=== PATIENT | female | born 1985 | race Caucasian/White ===

== ENCOUNTER 2020-05-10 19:14 | Emergency (ER) | payer SELFPAY ==
--- NOTE | 2020-05-10 20:18 | RAD REPORT ---
EXAM DESCRIPTION: RAD - Ankle Left 3 View - 05/10/2020 8:09 pm CLINICAL HISTORY: PAIN COMPARISON: No comparisons FINDINGS: Bimalleolar fracture is seen with moderate soft tissue swelling. No dislocation is evident .
--- NOTE | 2020-05-10 22:39 | EDPHYS ---
Physician Documentation [facility] Name: Sherri Drake Age: 34 yrs Sex: Female : 1985 Arrival Date: 05/10/2020 Time: 19:17 Bed 20 Private MD: ED Physician Talib Gonzalez HPI: 05/10 22:31 This 34 yrs old Female presents to ER via Wheelchair with complaints of Fall pm1 Injury, Ankle Injury. 22:31 Details of fall: The patient fell from an upright position, while walking, and struck a pm1 concrete surface. Onset: The symptoms/episode began/occurred today. Associated injuries: The patient sustained left ankle. Severity of symptoms: in the emergency department the symptoms are unchanged. The patient has not experienced similar symptoms in the past. Patient slipped on the ice and injured her left ankle. No headache, head injury, neck pain, LOC. Historical: - Allergies: 19:27 egg; em - PMHx: 19:27 Anxiety; TIA; em - PSHx: 19:27 None; em - Immunization history:: Adult Immunizations up to date. - Social history:: Smoking status: Reported history of juuling and/or vaping. ROS: 22:31 Constitutional: Negative for fever, chills, and weight loss. pm1 22:31 Cardiovascular: Negative for chest pain, palpitations, and edema, Respiratory: Negative for shortness of breath, cough, wheezing, and pleuritic chest pain, Abdomen/GI: Negative for abdominal pain, nausea, vomiting, diarrhea, and constipation, Back: Negative for injury and pain. 22:31 Skin: Negative for injury, rash, and discoloration, Neuro: Negative for headache, weakness, numbness, tingling, and seizure. 22:31 MS/extremity: Positive for pain, swelling, tenderness, of the left ankle. Exam: 22:31 Constitutional: This is a well developed, well nourished patient who is awake, alert, pm1 and in no acute distress. Head/Face: Normocephalic, atraumatic. Neck: Trachea midline, no thyromegaly or masses palpated, and no cervical lymphadenopathy. Supple, full range of motion without nuchal rigidity, or vertebral point tenderness. No Meningismus. Chest/axilla: Normal chest wall appearance and motion. Nontender with no deformity. No lesions are appreciated. 22:31 Skin: Warm, dry with normal turgor. Normal color with no rashes, no lesions, and no evidence of cellulitis. 22:31 Cardiovascular: Exam negative for acute changes, Rate: bradycardic, Rhythm: regular, Pulses: no pulse deficits are appreciated. 22:31 Respiratory: Exam negative for acute changes, respiratory distress, shortness of breath. 22:31 Back: Exam negative for acute changes, pain at rest, painful ROM. 22:31 Musculoskeletal/extremity: Extremities: grossly normal except: noted in the left ankle: swelling, tenderness, Circulation is intact in all extremities. the left foot Sensation intact. 22:31 Neuro: Exam negative for acute changes, Orientation: is normal, Mentation: is normal, Motor: is normal, moves all fours, Sensation: is normal, no obvious gross deficits. Vital Signs: 19:25 Pulse 79; Resp 18; Temp 98.1; Pulse Ox 99% on R/A; Weight 90.72 kg; Height 5 ft. 4 in. em (162.56 cm); Pain 5/10; 19:27 BP 114 / 74; em 22:50 Pain 6/10; sf 19:25 Body Mass Index 34.33 (90.72 kg, 162.56 cm) em MDM: 22:27 Patient medically screened. pm1 22:37 Data reviewed: vital signs. Data interpreted: Pulse oximetry: on room air is 99 %. pm1 Interpretation: normal. Counseling: I had a detailed discussion with the patient and/or guardian regarding: the historical points, exam findings, and any diagnostic results supporting the discharge/admit diagnosis, radiology results, the need for outpatient follow up, for definitive care, a orthopedic surgeon, to return to the emergency department if symptoms worsen or persist or if there are any questions or concerns that arise at home. 05/10 19:30 Order name: Ankle Left 3 View XRAY; Complete Time: 22:27 em 05/10 22:31 Order name: Ankle Splint: Orthoglass: Stirrup; Complete Time: 23:11 pm1 05/10 22:31 Order name: Ankle Splint: Orthoglass: Posterior; Complete Time: 23:11 pm1 05/10 22:31 Order name: Crutches; Complete Time: 23:36 pm1 05/10 22:31 Order name: Ice pack; Complete Time: 22:46 pm1 Administered Medications: 22:46 Drug: [place] 10 mg-325 mg 1 tabs Route: PO; sf 23:14 Follow up: Response: No adverse reaction sf 22:46 Drug: Ibuprofen 600 mg Route: PO; sf 23:14 Follow up: Response: No adverse reaction sf Disposition: 05/11 01:57 Co-signature as Attending Physician, Talib Gonzalez MD I agree with the assessment and kdr plan of care. Disposition: 05/10/20 22:38 Discharged to Home. Impression: Bimalleolar fracture of lower leg - left. - Condition is Stable. - Discharge Instructions: Nondisplaced Bimalleolar Ankle Fracture Treated With Immobilization, Crutch Use. - Prescriptions for Tylenol- Codeine #3 300-30 mg Oral Tablet - take 2 tablets by ORAL route every 6 hours As needed; 20 tablet. - Medication Reconciliation Form, Thank You Letter, Antibiotic Education, Prescription Opioid Use form. - Follow up: Emergency Department; When: As needed; Reason: Worsening of condition. Follow up: Private Physician; When: 2 - 3 days; Reason: Recheck today's complaints, Continuance of care, Re-evaluation by your physician. - Problem is new. - Symptoms have improved. Signatures: Dispatcher [employer] EDTalib Mckeon MD MD [facility] David Torres RN RN em Hosea Hawley, [place] NEUROPSYCHOLOGY DIRECTOR pm1 Feroz Dinh RN RN sf Corrections: (The following items were deleted from the chart) 05/10 23:37 22:38 05/10/2020 22:38 Discharged to Home. Impression: Bimalleolar fracture of lower sf leg - left. Condition is Stable. Forms are Medication Reconciliation Form, Thank You Letter, Antibiotic Education, Prescription Opioid Use. Follow up: Emergency Department; When: As needed; Reason: Worsening of condition. Follow up: Private Physician; When: 2 - 3 days; Reason: Recheck today's complaints, Continuance of care, Re-evaluation by your physician. Problem is new. Symptoms have improved. pm1
--- NOTE | 2020-05-10 22:39 | ER ---
Nurse's Notes [facility] Name: Sherri Drake Age: 34 yrs Sex: Female : 1985 Arrival Date: 05/10/2020 Time: 19:17 Bed 20 Private MD: Diagnosis: Bimalleolar fracture of lower leg-left Presentation: 05/10 19:25 Chief complaint: Patient states: slipped on ice about 30 min. ago, reports pain on the em left ankle, denies any other injury. Coronavirus screen: Client denies travel out of the [place] in the last 14 days. Ebola Screen: Patient negative for fever greater than or equal to 101.5 degrees Fahrenheit, and additional compatible Ebola Virus Disease symptoms Patient denies exposure to infectious person. Patient denies travel to an Ebola-affected area in the 21 days before illness onset. No symptoms or risks identified at this time. Initial Sepsis Screen: Does the patient meet any 2 criteria? No. Patient's initial sepsis screen is negative. Does the patient have a suspected source of infection? No. Patient's initial sepsis screen is negative. Risk Assessment: Do you want to hurt yourself or someone else? Patient reports no desire to harm self or others. Onset of symptoms was May 10, 2020. 19:25 Method Of Arrival: Wheelchair em 19:25 Acuity: LONI 4 em Historical: - Allergies: 19:27 egg; em - PMHx: 19:27 Anxiety; TIA; em - PSHx: 19:27 None; em - Immunization history:: Adult Immunizations up to date. - Social history:: Smoking status: Reported history of juuling and/or vaping. Screenin:49 Abuse screen: Denies threats or abuse. Denies injuries from another. Nutritional sf screening: No deficits noted. Tuberculosis screening: No symptoms or risk factors identified. Never had TB. Possible symptoms: None Risk factors: None. Fall Risk None identified. Fall in past 12 months (25 points). No secondary diagnosis (0 pts). No IV (0 pts). Ambulatory Aid- Crutches/Cane/Walker (15 pts). Gait- Impaired (20 pts.). Mental Status- Oriented to own ability (0 pts). Total Jarquin Fall Scale indicates Low Risk Score (25-44 pts). Fall prevention measures have been instituted. Side Rails Up X 2 Placed close to Nursing Station. Assessment: 22:46 General: Appears uncomfortable, Behavior is calm, cooperative. Pain: Complains of pain sf in left medial ankle and anterior aspect of left ankle Pain currently is 6 out of 10 on a pain scale. Neuro: Level of Consciousness is awake, alert, obeys commands, Oriented to person, place, time, situation, Appropriate for age. Cardiovascular: Patient's skin is warm and dry. Respiratory: Airway is patent Respiratory effort is even, unlabored, Respiratory pattern is regular, symmetrical. Musculoskeletal: Range of motion: limited in left ankle Swelling present in left ankle Tenderness present in left lateral ankle, left medial ankle and anterior aspect of left ankle Reports pain in left lateral ankle, left medial ankle and anterior aspect of left ankle. Vital Signs: 19:25 Pulse 79; Resp 18; Temp 98.1; Pulse Ox 99% on R/A; Weight 90.72 kg; Height 5 ft. 4 in. em (162.56 cm); Pain 5/10; 19:27 BP 114 / 74; em 22:50 Pain 6/10; sf 19:25 Body Mass Index 34.33 (90.72 kg, 162.56 cm) em ED Course: 19:17 Patient arrived in ED. mr 19:26 Triage completed. em 19:27 Arm band placed on. em 20:05 Ankle Left 3 View XRAY In Process Unspecified. EDMS 22:27 Hosea Hawley NP is PHCP. pm1 22:27 Talib Gonzalez MD is Attending Physician. pm1 22:28 Feroz Dinh, ANA is Primary Nurse. sf 22:49 Patient has correct armband on for positive identification. Bed in low position. Call sf light in reach. Side rails up X2. Door closed. Noise minimized. Verbal reassurance given. 22:49 No provider procedures requiring assistance completed. Patient did not have IV access sf during this emergency room visit. 23:11 Orthoglass splint: Posterior short lleg splint applied on left leg. stirrup splint sf applied on left leg. Administered Medications: 22:46 Drug: [place] 10 mg-325 mg 1 tabs Route: PO; sf 23:14 Follow up: Response: No adverse reaction sf 22:46 Drug: Ibuprofen 600 mg Route: PO; sf 23:14 Follow up: Response: No adverse reaction sf Outcome: 22:38 Discharge ordered by . pm1 23:36 Discharged to home via wheelchair. sf 23:36 Condition: stable 23:36 Discharge instructions given to patient, Instructed on discharge instructions, follow up and referral plans. medication usage, Demonstrated understanding of instructions, follow-up care, medications, crutch walking, Prescriptions given X 1. 23:37 Patient left the ED. sf Signatures: Dispatcher [employer] Carlita Ortiz Edgar, RN RN Hosea Pierre, [place] TEACHER EMOTIONALLY IMPAIRED pm1 Feroz Dinh RN RN sf
[2020-05-10] MEDS ORDERED: IBUPROFEN 200 MG TAB PO ONE (22:58)
[2020-05-10] MEDS ORDERED: IBUPROFEN 400 MG TAB ONE (22:58)
[2020-05-10] MEDS ORDERED: HYDROCODONE/APAP 10/325 TAB ONE (22:58)
[2020-05-10 23:41] VITALS: TEMP 98.1; O2SAT 99
[2020-05-10 23:42] VITALS: BP 114/74
== END 2020-05-10 23:37 | disposition home or self-care (01) ==
LOC: ER 19:14
PROC: 2W3RX1Z Immobilization of Left Lower Leg using Splint (ICD-10-PCS; principal; 2020-05-10)
DX: S82.842A Displaced bimalleolar fracture of left lower leg, initial encounter for closed fracture (principal); W00.0XXA Fall on same level due to ice and snow, initial encounter; Y93.01 Activity, walking, marching and hiking; Y92.9 Unspecified place or not applicable; Z91.012 Allergy to eggs
CPT/HCPCS: 99284

== ENCOUNTER 2021-03-15 15:12 | Emergency (ER) | payer SELFPAY ==
--- NOTE | 2021-03-15 16:19 | RAD REPORT ---
EXAM DESCRIPTION: RAD - Chest Single View - 03/15/2021 4:14 pm CLINICAL HISTORY: chest pain, fatigue COMPARISON: <Comparisons> FINDINGS: Lines: None. Lungs: No evidence of edema or pneumonia. Pleural: No significant pleural effusions or pneumothorax. Cardiac: The heart size is within normal limits. Bones: No acute fractures. Other: IMPRESSION: No acute cardiopulmonary disease.
[2021-03-15 16:31] LABS: Absolute Lymphocytes (CBC) 2.5 K/uL (0.7-4.9); Basophils % 1.2 % (0-1.3); Hematocrit 38.9 % (36.0-45.0); Lymphocytes % 31.2 % (15.3-44.8); MPV 8.7 fL (7.6-11.3); RBC Red Blood Cell Count 4.23 M/uL (3.86-4.86)
[2021-03-15 16:38] LABS: Protime INR 0.96
[2021-03-15 16:53] LABS: Urine Blood Negative (Negative); Urine Glucose Negative (Negative); Urine Protein Negative (Negative); Urine Specific Gravity >=1.030 (1.005-1.030); Urine pH 5.5 (5.0-7.0)
--- NOTE | 2021-03-15 17:48 | RAD REPORT ---
EXAM DESCRIPTION: US - Extrem Venous W Compress Sonu - 03/15/2021 5:31 pm CLINICAL HISTORY: Leg pain COMPARISON: None. TECHNIQUE: Real-time sonographic evaluation of the bilateral lower extremity deep venous systems was performed. FINDINGS: Normal compressibility, flow augmentation, phasic flow and spontaneous flow is identified in both the left and right lower extremity deep venous systems. No intraluminal filling defects seen. IMPRESSION: No DVT in either lower extremity.
[2021-03-15] MEDS ORDERED: ACETAMINOPHEN 325 MG TABLET ONE (20:12)
[2021-03-15 21:25] LABS: ALT/SGPT 22 U/L (12-78); AST/SGOT 15 U/L (15-37); Albumin 3.7 g/dL (3.4-5.0); Alkaline Phosphatase 100 U/L (45-117); BUN Blood Urea Nitrogen 8 mg/dL (7-18); Bicarbonate 25 mmol/L (21-32); Bilirubin Direct < 0.1 mg/dL (0-0.2); Bilirubin Total 0.2 mg/dL (0.2-1.0); Glucose Level 92 mg/dL (74-106); Magnesium 1.9 mg/dL (1.8-2.4); NT PRO-BNP 28 pg/mL (<125); Potassium 3.8 mmol/L (3.5-5.1); Protein, Total 7.6 g/dL (6.4-8.2); Sodium Level 137 mmol/L (136-145); Troponin (Emerg Dept Use Only) < 0.02 ng/mL (0.0-0.045)
--- NOTE | 2021-03-15 21:39 | ER ---
Nurse's Notes [facility] Name: Sherri Drake Age: 35 yrs Sex: Female : 1985 Arrival Date: 03/15/2021 Time: 15:14 Bed 20 Private MD: Diagnosis: Other malaise and fatigue Presentation: 03/15 15:36 Chief complaint: Patient states: for the last few months, she has been getting ap3 excessively fatigued. Patient also reports new onset generalized bruising and headache. Coronavirus screen: At this time, the client does not indicate any symptoms associated with coronavirus-19. Ebola Screen: No symptoms or risks identified at this time. Initial Sepsis Screen: Does the patient meet any 2 criteria? No. Patient's initial sepsis screen is negative. Does the patient have a suspected source of infection? No. Patient's initial sepsis screen is negative. Risk Assessment: Do you want to hurt yourself or someone else? Patient reports no desire to harm self or others. Onset of symptoms was October 2020. 15:36 Method Of Arrival: Ambulatory ap3 15:36 Acuity: LONI 3 ap3 Triage Assessment: 15:41 Headache History: The patient has had previous headaches and this one is similar to ap3 previous episodes, and this one is less severe than previous episodes. General: Appears in no apparent distress. Behavior is cooperative, appropriate for age. Pain: Complains of pain in right and left upper leg Pain currently is 0 out of 10 on a pain scale. at worst was 4 out of 10 on a pain scale. Pain began gradually, over the last few months Also complains of no other associated symptoms. Neuro: Level of Consciousness is awake, alert, obeys commands, Oriented to person, place, time, situation, Appropriate for age Gait is steady, Speech is normal. Cardiovascular: Patient's skin is warm and dry. Respiratory: Airway is patent Respiratory effort is even, unlabored, Respiratory pattern is regular, symmetrical. 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 - Social history:: Smoking status: Patient denies any tobacco usage or history of. Screenin:43 Abuse screen: Denies threats or abuse. Nutritional screening: No deficits noted. ap3 Tuberculosis screening: No symptoms or risk factors identified. Fall Risk None identified. Assessment: 16:04 General: Appears in no apparent distress. Behavior is calm, cooperative. Pain: patterson Complains of pain in face and scalp Pain began gradually, headaches [id number]. Derm: Reports generalized bruising. Musculoskeletal: Reports generalized weakness. 21:22 Reassessment: No changes from previously documented assessment. Patient and/or family kd3 updated on plan of care and expected duration. Pain level reassessed. Patient is alert, oriented x 3, equal unlabored respirations, skin warm/dry/pink. Vital Signs: 15:36 BP 128 / 90; Pulse 86; Resp 20; Temp 98.8(TE); Pulse Ox 100% ; Weight 81.65 kg; Height ap3 5 ft. 4 in. (162.56 cm); 16:06 BP 127 / 95; Pulse 80; Resp 18; Pulse Ox 100% on R/A; patterson 16:57 BP 124 / 90; Pulse 69; Resp 18; Pulse Ox 99% on R/A; patterson 17:40 BP 131 / 82; Pulse 95; Resp 18; Pulse Ox 99% ; patterson 18:22 BP 134 / 89; Pulse 81; Resp 18; Pulse Ox 99% on R/A; patterson 21:23 BP 128 / 88; Pulse 82; Resp 18; Pulse Ox 100% on R/A; kd3 15:36 Body Mass Index 30.90 (81.65 kg, 162.56 cm) ap3 ED Course: 15:14 Patient arrived in ED. mr 15:39 Triage completed. ap3 15:44 Arm band placed on left wrist. ap3 15:47 Twyla-StageAdelina messer is Primary Nurse. patterson 15:53 Farshad Corcoran PA is PHCP. jmm 15:53 Lon Hou MD is Attending Physician. jmm 16:04 Patient has correct armband on for positive identification. Bed in low position. patterson 16:04 No provider procedures requiring assistance completed. patterson 16:14 XRAY Chest (1 view) In Process Unspecified. EDMS 16:24 Basic Metabolic Panel Sent. jg9 16:24 CBC with Diff Sent. jg9 16:24 LFT's Sent. jg9 16:24 Magnesium Sent. jg9 16:24 NT PRO-BNP Sent. jg9 16:24 PT-INR Sent. jg9 16:25 Troponin (emerg Dept Use Only) Sent. jg9 16:25 [place] Screen Profile Sent. jg9 17:31 US Extremity Venous W Compression Sonu In Process Unspecified. EDMS 21:58 IV discontinued. kd3 Administered Medications: 20:17 Drug: Tylenol 650 mg Route: PO; kd3 Outcome: 21:39 Discharge ordered by MD. [facility] 21:57 Discharged to home ambulatory. kd3 21:57 Condition: good 21:57 Discharge instructions given to patient, Instructed on discharge instructions, follow up and referral plans. Demonstrated understanding of instructions, follow-up care. 21:58 Patient left the ED. kd3 Signatures: Dispatcher [employer] EDMS Farshad Corcoran PA PA [facility] Carlita Funes mr Sahara Eaton RN RN ap3 Marguerite Zhou RN RN kd3 Lynsey Spring jg9 HenrryStageAdelina messer Corrections: (The following items were deleted from the chart) 15:44 15:36 Acuity: LONI 4 ap3 ap3
--- NOTE | 2021-03-15 21:39 | EDPHYS ---
Physician Documentation [facility] Name: Sherri Drake Age: 35 yrs Sex: Female : 1985 Arrival Date: 03/15/2021 Time: 15:14 Bed 20 Private MD: ED Physician Lon Hou HPI: 03/15 16:04 This 35 yrs old Female presents to ER via Ambulatory with complaints of Headache, jmm Fatigue,Bruising. 16:04 Onset: The symptoms/episode began/occurred gradually, 2 month(s) ago. The patient has jmm not experienced similar symptoms in the past. 35-year-old female with history of anxiety the presents emerged department with complaints of generalized body aches, joint pain, fatigue beginning approximately 2 months ago. Patient states the pain is most intense in her thighs bilaterally. Patient denies fever or chills. Also complains of a chronic headache. Patient states having similar headaches in the past.. 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 - Social history:: Smoking status: Patient denies any tobacco usage or history of. ROS: 16:04 Constitutional: Negative for fever, chills, and weight loss, Cardiovascular: Negative jmm for chest pain, palpitations, and edema, Respiratory: Negative for shortness of breath, cough, wheezing, and pleuritic chest pain. 16:04 Constitutional: Positive for body aches, chills. 16:04 Neuro: Positive for headache. 16:04 All other systems are negative. Exam: 16:04 Constitutional: This is a well developed, well nourished patient who is awake, alert, jmm and in no acute distress. Head/Face: atraumatic. Eyes: EOMI, no conjunctival erythema appreciated ENT: Moist Mucus Membranes Neck: Trachea midline, Supple Chest/axilla: Normal chest wall appearance and motion. Cardiovascular: Regular rate and rhythm. No edema appreciated Respiratory: Normal respirations, no respiratory distress appreciated Abdomen/GI: Non distended, soft Back: Normal ROM Skin: General appearance color normal MS/ Extremity: Moves all extremities, no obvious deformities appreciated, no edema noted to the lower extremities Neuro: Awake and alert, normal gait Psych: Behavior is normal, Mood is normal, Patient is cooperative and pleasant Vital Signs: 15:36 BP 128 / 90; Pulse 86; Resp 20; Temp 98.8(TE); Pulse Ox 100% ; Weight 81.65 kg; Height ap3 5 ft. 4 in. (162.56 cm); 16:06 BP 127 / 95; Pulse 80; Resp 18; Pulse Ox 100% on R/A; patterson 16:57 BP 124 / 90; Pulse 69; Resp 18; Pulse Ox 99% on R/A; patterson 17:40 BP 131 / 82; Pulse 95; Resp 18; Pulse Ox 99% ; patterson 18:22 BP 134 / 89; Pulse 81; Resp 18; Pulse Ox 99% on R/A; patterson 21:23 BP 128 / 88; Pulse 82; Resp 18; Pulse Ox 100% on R/A; kd3 15:36 Body Mass Index 30.90 (81.65 kg, 162.56 cm) ap3 MDM: 16:04 Patient medically screened. [facility] 21:38 Data reviewed: vital signs, nurses notes. Counseling: I had a detailed discussion with [facility] the patient and/or guardian regarding: the historical points, exam findings, and any diagnostic results supporting the discharge/admit diagnosis, lab results, radiology results, the need for outpatient follow up, to return to the emergency department if symptoms worsen or persist or if there are any questions or concerns that arise at home. ED course: Patient is alert nontoxic in appearance in the ED. Patient is advised to follow-up PCP for further evaluation. Patient understood and agrees plan of care.. 03/15 16:05 Order name: Basic Metabolic Panel; Complete Time: 21:28 [facility] 03/15 16:05 Order name: CBC with Diff; Complete Time: 16:47 [facility] 03/15 16:05 Order name: LFT's; Complete Time: 21:28 [facility] 03/15 16:05 Order name: Magnesium; Complete Time: 21:28 [facility] 03/15 16:05 Order name: NT PRO-BNP; Complete Time: 21:28 [facility] 03/15 16:05 Order name: PT-INR; Complete Time: 16:47 [facility] 03/15 16:05 Order name: Troponin (emerg Dept Use Only); Complete Time: 21:28 [facility] 03/15 16:05 Order name: XRAY Chest (1 view); Complete Time: 16:23 [facility] 03/15 16:05 Order name: EKG; Complete Time: 16:06 [facility] 03/15 16:05 Order name: Cardiac monitoring; Complete Time: 16:25 [facility] 03/15 16:05 Order name: [place] Screen Profile; Complete Time: 17:27 [facility] 03/15 16:05 Order name: US Extremity Venous W Compression Sonu; Complete Time: 18:00 [facility] 03/15 16:53 Order name: Urine Dipstick-Ancillary; Complete Time: 16:58 [facility] 03/15 16:05 Order name: EKG - Nurse/Tech; Complete Time: 17:31 [facility] 03/15 16:05 Order name: IV Saline Lock; Complete Time: 16:24 [facility] 03/15 16:05 Order name: Labs collected and sent; Complete Time: 16:24 [facility] 03/15 16:05 Order name: O2 Sat Monitoring; Complete Time: 16:24 [facility] 03/15 16:06 Order name: Urine Dipstick-Ancillary (obtain specimen); Complete Time: 16:54 [facility] 03/15 16:06 Order name: Urine Test (obtain specimen); Complete Time: 16:54 [facility] 03/15 16:38 Order name: Labs - recollect needed: recollect light green tube; Complete Time: 17:03 03/15 17:18 Order name: Labs - recollect needed: recollect light green top again; Complete Time: 17:31 Administered Medications: 20:17 Drug: Tylenol 650 mg Route: PO; kd3 Disposition Summary: 03/15/21 21:39 Discharge Ordered Location: Home jm Condition: Stable jm Diagnosis - Other malaise and fatigue jm Followup: jmm - With: Private Physician - When: 2 - 3 days - Reason: Recheck today's complaints, Continuance of care, Re-evaluation by your physician Discharge Instructions: - Discharge Summary Sheet jmm - Fatigue jmm Forms: - Medication Reconciliation Form jm - Thank You Letter jmm - Antibiotic Education jmm - Prescription Opioid Use [facility] Signatures: Dispatcher [employer] EDMS Dirrim, Farshad Obrien PA PA jmm Prokisch, Amanda, RN RN ap3 Marguerite Zhou, RN RN kd3
[2021-03-15 22:29] VITALS: TEMP 98.8
[2021-03-15 22:35] VITALS: BP 128/88; O2SAT 100
== END 2021-03-15 21:58 | disposition home or self-care (01) ==
LOC: ER 15:12
DX: R53.81 Other malaise (principal); Z91.012 Allergy to eggs
CPT/HCPCS: 36415; 71045; 80048; 80076; 81003; 83735; 83880; 84484; 85025; 85610; 86308; 93005; 93970; 99284

== ENCOUNTER 2024-07-21 14:38 | Emergency (ER) | payer OTHER, SELFPAY ==
[2024-07-21] MEDS ORDERED: ASPIRIN 81 MG CHEWABLE TABLET ONE (14:43)
--- OUTSIDE RECORDS SUMMARY | 2024-07-21 14:43 | XMS REPORT | Continuity of Care Document ---
Author Name Unknown Address [address] [facility] [address] [place] [address] [facility] [place] Address [address] 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 Name Role Phone Nando Potts Primary Care Physician Campaigns, Generic Provider Attending Clinician Unavailable Ching Washington Attending Clinician [phone] ALIVIA MEDELLIN Attending Clinician Unavailable Alivia Medellin NP Attending Clinician [phone] GUILLERMINA RODRIGUEZ Attending Clinician Unavailable Guillermina Pickering Attending Clinician [phone] Ching CUNHA Attending Clinician Unavailable ALIVIA MEDELLIN Admitting Clinician Unavailable Ching CUNHA Admitting Clinician Unavailable Payers Payer Name Policy Type Policy Number Effective Date Expirati on Date Source Allergies, Adverse Reactions, Alerts Allergy Name Allergy Type Status Severity Reaction(s) Onset Date Inactive Date Treating Clinician Comments Source egg DA Active [place] 08-22 00:00: 00 [facility] EGG DRUG INGREDI Active N/V 04-30 00:00: 00 [facility] Egg Propensi ty to adverse reaction s Active Nausea and/or Vomiting 04-30 00:00: 00 [facility] Social History Social Habit Start Date Stop Date Quantity Comments Source [facility] Sex assigned at 1985 00:00:00 1985 00:00:00 [facility] Smoking Status Start Date Stop Date Source Tobacco smoking consumption unknown [facility] Medications Ordered Medication Name Filled Medication Name Start Date Stop Date Current Medication? Ordering Clinician Indication Dosage Frequency Signature (SIG) Comments Components Source ibuprofen (IBU) tablet 800 mg 05-27 23:45: 00 05-27 23:46 :00 No [id number] 800mg 800 mg, Oral, ONCE, 1 dose, On Sun05/28/23 at 1745, MARY JO [facility] ibuprofen 600 mg tablet 05-27 00:00: 00 Yes [id number] 600mg Take 1 tablet by mouth every 6 (six) hours as needed for Pain (scale 4-6). [facility] predniSONE 20 mg tablet 05-27 00:00: 00 06-02 05:59 :00 No [id number] 20mg Take 1 tablet by mouth every morning for 5 days. [facility] ketorolac (TORADOL) injection 30 mg 05-11 15:15: 00 05-11 14:29 :00 No 30mg 30 mg, Intramuscu lar, ONCE, 1 dose, On Sun05/11/23 at 0915, Routine [facility] benzonatate 100 mg capsule 05-11 00:00: 00 Yes [id number] 100mg Take 1 capsule by mouth 3 (three) times daily as needed for Cough. [facility] ibuprofen 600 mg tablet 05-17 00:00: 00 Yes [id number] 600mg Take 1 tablet by mouth every 6 (six) hours as needed for Pain (scale 4-6). [facility] metroNIDAZO LE (FLAGYL) 500 mg tablet 04-30 00:00: 00 Yes 500mg Take 1 Tab by mouth 2 (two) times daily. [facility] traMADOL (ULTRAM) 50 mg tablet 04-30 00:00: 00 Yes 100mg Take 2 Tabs by mouth every 6 (six) hours as needed for Pain. [facility] Vital Signs Vital Name Observation Time Observation Value Comments Beau alexandre Systolic blood pressure 2023-07-31 23:00:00 136 mm[Hg] [facility] Diastolic blood pressure 2023-07-31 23:00:00 94 mm[Hg] [facility] Heart rate 2023-07-31 23:00:00 84 /min [facility] Respiratory rate 2023-07-31 23:00:00 19 /min [facility] Oxygen saturation in Arterial blood by Pulse oximetry 2023-07-31 23:00:00 98 /min [facility] Body temperature 2023-07-31 21:06:00 37.22 Monica [facility] Body height 2023-07-31 21:06:00 162.6 cm [facility] Body weight 2023-07-31 21:06:00 90.719 kg [facility] BMI 2023-07-31 21:06:00 34.33 kg/m2 [facility] Systolic blood pressure 2023-05-29 02:00:00 138 mm[Hg] [facility] Diastolic blood pressure 2023-05-29 02:00:00 85 mm[Hg] [facility] Heart rate 2023-05-29 02:00:00 99 /min [facility] Respiratory rate 2023-05-29 02:00:00 17 /min [facility] Oxygen saturation in Arterial blood by Pulse oximetry 2023-05-29 02:00:00 100 /min [facility] Body temperature 2023-05-28 23:34:00 36.83 Monica [facility] Body height 2023-05-28 23:34:00 162.6 cm [facility] Body weight 2023-05-28 23:34:00 90.719 kg [facility] BMI 2023-05-28 23:34:00 34.33 kg/m2 [facility] Systolic blood pressure 2023-05-11 14:02:00 156 mm[Hg] [facility] Diastolic blood pressure 2023-05-11 14:02:00 94 mm[Hg] [facility] Heart rate 2023-05-11 14:02:00 81 /min [facility] Body temperature 2023-05-11 14:02:00 36.89 Monica [facility] Respiratory rate 2023-05-11 14:02:00 18 /min [facility] Body height 2023-05-11 14:02:00 162.6 cm [facility] Body weight 2023-05-11 14:02:00 90.719 kg [facility] BMI 2023-05-11 14:02:00 34.33 kg/m2 [facility] Oxygen saturation in Arterial blood by Pulse oximetry 2023-05-11 14:02:00 100 /min [facility] BP Systolic 2024-04-09 16:34:00 151 mm[Hg] Step hen F Miky BP Diastolic 2024-04-09 16:34:00 101 mm[Hg] Gary phen F Miky Weight Measured 2024-04-09 16:34:00 210.20 pounds Jesus F Miky Height Measured 2024-04-09 16:34:00 64.00 inches Jesus F Miky Body Temperature 2024-04-09 16:34:00 98.20 degrees Jesus F Miky Heart Rate 2024-04-09 16:34:00 113.00 /min Step hen F Miky Respiratory Rate 2024-04-09 16:34:00 19.00 /min Jesus F Miky Respiratory Rate 2024-02-06 10:12:00 20.00 /min Jesus F Miky BP Systolic 2024-02-06 10:12:00 144 mm[Hg] Earl Bolaños BP Diastolic 2024-02-06 10:12:00 96 mm[Hg] Gary Bolaños Weight Measured 2024-02-06 10:12:00 166.00 pounds Jesus Bolaños Height Measured 2024-02-06 10:12:00 64.00 inches Jesus Bolaños Body Temperature 2024-02-06 10:12:00 99.20 degrees Jesus Bolaños Heart Rate 2024-02-06 10:12:00 100.00 /min Earl Bolaños Procedures Procedure Date / Time Performed Performing Clinician Source RAPID STREP SCREEN FOR GROUP A 2023-07-31 21:50:00 Ching Cunha [facility] RAPID INFLUENZA A/B 2023-07-31 21:50:00 Ching Cunha e [facility] COVID-19 (ID NOW RAPID TESTING) 2023-07-31 21:50:00 Ching Cunha [facility] US DUPLEX VENOUS ARM LEFT - BY VASCULAR LAB 2023-05-29 01:08:00 Alivia Medellin [facility] ASSIGNMENT OF BENEFITS 2023-05-29 01:01:37 Docto r Unassigned, Leal [facility] COMP. METABOLIC PANEL ([id number]) 2023-05-29 00:45:00 Alivia Medellin [facility] CBC WITH DIFF 2023-05-29 00:45:00 [facility]ivia [facility]ell[facility] PROTHROMBIN TIME / INR 2023-05-29 00:45:00 Billie Medellin ala [facility] ACTIVATED PARTIAL THRMPLAS JOO 2023-05-29 00:45:00 Alivia Medellin [facility] XR HAND <3 VW LEFT 2023-05-28 23:55:00 Alivia Medellin [facility] CONSENT/REFUSAL FOR DIAGNOSIS AND TREATMENT 2023-05-28 23:25:15 Doctor Unassigned, Leal [facility] ASSIGNMENT OF BENEFITS 2023-05-11 14:36:17 Docto r Unassigned, Leal [facility] POCT TEST 2023-05-11 14:29:00 Patricia Rodriguez [facility] RAPID INFLUENZA A/B 2023-05-11 14:06:00 Saturnino Martin [facility] COVID-19 (ID NOW RAPID TESTING) 2023-05-11 14:06:00 Saturnino Matrin [facility] CONSENT/REFUSAL FOR DIAGNOSIS AND TREATMENT 2023-05-11 13:58:41 Doctor Unassigned, Leal [facility] Encounters Start Date/Time End Date/Time Encounter Type Admission Type Attending [facility] Care Department Encounter ID Source 2024-04-09 16:19:50 2024-04-09 16:19:50 Outpatient [facility] [id number] Jesus Bolaños 2024-04-09 00:00:00 2024-04-09 00:00:00 Outpatient Visit [id number] Jesus Bolaños 2024-02-06 10:05:07 2024-02-06 10:05:07 Outpatient [facility] [id number] Jesus Bolaños 2024-02-06 00:00:00 2024-02-06 00:00:00 Outpatient Visit [id number] Jesus Bolaños 2023-08-08 00:00:00 2023-08-08 11:25:01 Letter (Out) Campaigns, Generic Provider [facility] [id number] [facility] 2023-07-31 16:10:00 2023-07-31 18:42:00 Emergency Ching Cunha [facility] [id number] [facility] 2023-05-28 17:35:00 2023-05-28 20:28:00 Emergency ALIVIA TORRES [facility] ERT [id number] [facility] 2023-05-28 17:35:00 2023-05-28 20:28:00 Emergency Alivia Medellin [facility] [id number] [facility] 2023-05-11 08:07:00 2023-05-11 09:19:00 Emergency X GUILLERMINA RODRIGUEZ [facility] ERT [id number] [facility] 2023-05-11 08:07:00 2023-05-11 09:19:00 Emergency Guillermina Rodriguez [facility] [id number] [id number] [facility] 2023-04-19 17:30:04 2023-04-19 17:30:04 Outpatient SFA SFA [id number] Jesus Ruiz Miky 2022-11-21 16:29:13 2022-11-21 16:29:13 Outpatient SFA SFA [id number] Jesus Ruiz Miky 2022-11-11 09:40:28 2022-11-11 09:40:28 Outpatient SFA SFA [id number] Jesus Bolaños 2022-11-07 16:49:54 2022-11-07 16:49:54 Outpatient SFA SFA [id number] Jesus Bolaños 2022-11-06 15:06:59 2022-11-06 15:06:59 Outpatient SFA SFA [id number] Jesus Ruiz Miky 2022-10-17 15:32:00 2022-10-17 15:32:00 Outpatient SFA SFA [id number] Jesus Ruiz Miky 2022-10-16 15:51:35 2022-10-16 15:51:35 Outpatient SFA SFA [id number] Jesus Bolaños 2020-05-17 15:38:00 2020-05-17 19:38:00 Emergency X Ching CUNHA [facility] ERT [id number] [facility] Results Test Description Test Time Test Comments Results Result Co mments Source Jesus Ruiz AustinHIV 1/2 4TH GEN, RFLX CONF [ADDED]2024-02-07 00:00:00* Test Item Value Reference Range Interpretation Comme nts HIV 1/2 4TH GEN, RFLX CONF ( test code = 3514) NON-REACTIVE Jesus Ruiz AustinCT/NG, NAAT, URINE [ADDED]2024-02-07 00:00:00* Test Item Value Reference Range Interpretation Comme nts CHLAMYDIA, NAAT, URINE (test code = 48749) NEGATIVE GONORRHEA, NAAT, URINE (test code = 72349) NEGATIVE Jesus BolañosHEPATITIS PANEL, DIAGNOSTIC [ADDED]2024-02-07 00:00:00* Test Item Value Reference Range Interpretation Comme nts HEPATITIS A TOTAL AB (test c ode = 2725) REACTIVE HEPATITIS B SURF AG (test co de = 2739) NON-REACTIVE HEP B CORE TOTAL AB (test co de = 2729) NON-REACTIVE HEPATITIS B SURFACE AB (test code = 2737) NON-REACTIVE HEPATITIS C ANTIBODY (test c ode = 4675) NON-REACTIVE INTERPRETATION HEPATITIS A: (test code = 2552) (NOTE) INTERPRETATION HEPATITIS B: (test code = 19679) (NOTE) INTERPRETATION HEPATITIS C: (test code = 90634) (NOTE) Jesus BolañsoHEPATITIS A IgM [REFLEX]2024-02-07 00:00:00* Test Item Value Reference Range Interpretation Comme nts HEPATITIS A IgM (test code = 2728) NON-REACTIVE Jesus BolañosRPR [ADDED]2024-02-07 00:00:00* Test Item Value Reference Range Interpretation Comme nts RPR RESULT (test code = 3501) NON-REACTIVE RPR TITER (test code = 3500) NOT INDIC. TITER Jesus Ruiz AustinHIV 1/2 4TH GEN, RFLX CONF [ADDED]2024-02-07 00:00:00* Test Item Value Reference Range Interpretation Comme nts HIV 1/2 4TH GEN, RFLX CONF ( test code = 3514) NON-REACTIVE Jesus Ruiz AustinCT/NG, NAAT, URINE [ADDED]2024-02-07 00:00:00* Test Item Value Reference Range Interpretation Comme nts CHLAMYDIA, NAAT, URINE (test code = 64703) NEGATIVE GONORRHEA, NAAT, URINE (test code = 13155) NEGATIVE Jesus BolañosLULAPATITIS PANEL, DIAGNOSTIC [ADDED]2024-02-07 00:00:00* Test Item Value Reference Range Interpretation Comme nts HEPATITIS A TOTAL AB (test c ode = 2725) REACTIVE HEPATITIS B SURF AG (test co de = 2739) NON-REACTIVE HEP B CORE TOTAL AB (test co de = 2729) NON-REACTIVE HEPATITIS B SURFACE AB (test code = 2737) NON-REACTIVE HEPATITIS C ANTIBODY (test c ode = 4675) NON-REACTIVE INTERPRETATION HEPATITIS A: (test code = 2552) (NOTE) INTERPRETATION HEPATITIS B: (test code = 46178) (NOTE) INTERPRETATION HEPATITIS C: (test code = 59983) (NOTE) Jesus EarlPATITIS A IgM [REFLEX]2024-02-07 00:00:00* Test Item Value Reference Range Interpretation Comme nts HEPATITIS A IgM (test code = 2728) NON-REACTIVE Jesus BolañosCOMP. METABOLIC PANEL (28584)2023-05-29 01:25:01* Test Item Value Reference Range Interpretation Comme nts NA (test code = 2078827842) 134 mmol/L 135-145 L K (test code = 4674315025) 3.9 mmol/L 3.5-5.0 CL (test code = 7871941749) 105 mmol/L 98-108 CO2 TOTAL (test code = 4698151271) 22 mmol/L 23-31 L AGAP (test code = 9616396937) 7 2-16 BUN (test code = 1750537776) 16 mg/dL 7-23 GLUCOSE (test code = 4954865581) 87 mg/dL 70-110 CREATININE (test code = 2160-0) 0.79 mg/dL 0.50-1.04 TOTAL BILI (test code = 4849584721) 0.3 mg/dL 0.1-1.1 CALCIUM (test code = 3081481818) 9.0 mg/dL 8.6-10.6 T PROTEIN (test code = 0952860711) 7.4 g/dL 6.3-8.2 ALBUMIN (test code = 1589710638) 4.2 g/dL 3.5-5.0 ALK PHOS (test code = 6087295546) 84 U/L 34-122 ALTv (test code = 1742-6) 17 U/L 5-35 AST(SGOT) (test code = 8185993022) 29 U/L 13-40 eGFR (test code = 72653-5) 98.9 mL/min/1.73m2 CKD-EPI eGFR (2020). Assuming creatinine has been stable day-to-day for at least three months, the eGFR indicates Category G1 (>= 90 mL/min/1.73 m2) Lab Interpretation (test code = 62281-0) Abnormal [facility] / [id number] 01:19:40* Test Item Value Reference Range Interpretation Comme [facility] PROTIME PATIENT (test code = 5964-2) 11.8 10.1-12.6 INR (test code = 6301-6) 1.0 Normal INR <1.1; Warfarin Therapeutic range 2.0 to 3.0 or 2.5 to 3.5, depending upon the indications. Lab Interpretation (test code = 74386-2) Normal [facility]IV[facility] PARTIAL THRMPLAS [id number] 01:19:40* Test Item Value Reference Range Interpretation Comme [facility] APTT Patient (test code = 3173-2) 32 26-36 ISAIAS (test code = ISAIAS) The [facility] patient population mean normal value for aPTT is 30 seconds. Lab Interpretation (test code = 17267-2) Normal [facility] HospitalCBC WITH [id number] 01:08:19* Test Item Value Reference Range Interpretation Comme [facility] WBC (test code = 6690-2) 8.20 4.30-11.10 RBC (test code = 789-8) 4.20 3.93-5.25 HGB (test code = 718-7) 13.0 g/dL 11.6-15.0 HCT (test code = 4544-3) 38.7 % 35.7-45.2 MCV (test code = 787-2) 92.1 fL 80.6-95.5 MCH (test code = 785-6) 31.0 pg 25.9-32.8 MCHC (test code = 786-4) 33.6 g/dL 31.6-35.1 RDW-SD (test code = 46401-9) 45.7 fL 39.0-49.9 RDW-CV (test code = 788-0) 13.6 % 12.0-15.5 PLT (test code = 777-3) 332 166-358 MPV (test code = 89153-9) 10.2 fL 9.5-12.9 NRBC/100 WBC (test code = 5580945809) 0.0 0.0-10.0 NRBC x10^3 (test code = 4527758977) See_Comment [Automated me ssage] The system which generated this result transmitted reference range: 10*3/?L. The reference range was not used to interpret this result as normal/abnormal. GRAN MAT (NEUT) % (test code = 770-8) 50.3 % IMM GRAN % (test code = 8433867660) 0.20 % LYMPH % (test code = 736-9) 35.6 % MONO % (test code = 5905-5) 10.4 % EOS % (test code = 713-8) 2.6 % BASO % (test code = 706-2) 0.9 % GRAN MAT x10^3(ANC) (test code = 8664973891) 4.13 10*3/uL 1.88-7.09 IMM GRAN x10^3 (test code = 1223744275) 0.00-0.06 LYMPH x10^3 (test code = 731-0) 2.92 10*3/uL 1.32-3.29 MONO x10^3 (test code = 742-7) 0.85 10*3/uL 0.33-0.92 EOS x10^3 (test code = 711-2) 0.21 10*3/uL 0.03-0.39 BASO x10^3 (test code = 704-7) 0.07 10*3/uL 0.01-0.07 [facility]XR [facility] <3 VW [id number] 00:44:59ORDERING PHYSICIAN: ALIVIA MEDELLIN HISTORY: 37 years old, Female, pain and swelling TECHNIQUE: XR HAND <3 VW LEFT COMPARISON: None. FINDINGS: No acute fracture, dislocation or evidence of osseousdestruction. Softtissues are within normal limits.[facility] HospitalPOCT [id number] 14:29:00 * Test Item Value Reference Range Interpretation Comme nts POCT PREG (test code = 1605) Negative On board controls acceptable with C Line (test code = 3574) Yes POCT PREG LOT # (test code = 3575) [id number] POCT PREG TEST DATE ( test code = 3576) 06/03/2024 Lab Interpretation (test cod e = 70156-6) Normal [facility] W/AUTO DIFF WITH [id number] 02:22:45* Test Item Value Reference Range Interpretation Comme nts WBC (test code = 1001) 8.0 K/UL 3.5-11.0 RBC (test code = 1002) 4.20 M/UL 3.80-5.40 HEMOGLOBIN (test code = 1003) 13.1 G/DL 11.5-15.5 HEMATOCRIT (test code = 1004) 37.5 % 34.0-45.0 MCV (test code = 1005) 89.3 fL 80.0-99.0 MCH (test code = 1006) 31.2 PG 25.0-33.0 MCHC (test code = 1007) 34.9 G/DL 31.0-36.0 RDW (test code = 1038) 12.5 % 11.5-15.0 NEUTROPHILS (test code = 1008) 55.6 % LYMPHOCYTES (test code = 1010) 32.6 % MONOCYTES (test code = 1011) 8.9 % EOSINOPHILS (test code = 1012) 1.6 % BASOPHILS (test code = 1013) 1.0 % IMMATURE GRANULOCYTES (test code = 1036) 0.3 % NUCLEATED RBCS (test code = 1065) 0.0 /100 WBC'S See_Comment [Automated message] The system which generated this result transmitted reference range: 0.0. The reference range was not used to interpret this result as normal/abnormal. PLATELET COUNT (test code = 1015) 344 K/UL 130-400 ABSOLUTE NEUTROPHILS (test code = 1066) 4.43 K/UL 1.50-7.50 ABSOLUTE LYMPHOCYTES (test code = 1067) 2.60 K/UL 1.00-4.00 ABSOLUTE MONOCYTES (test code = 1068) 0.71 K/UL 0.20-1.00 ABSOLUTE EOSINOPHILS (test code = 1040) 0.13 K/UL 0.00-0.50 ABSOLUTE BASOPHILS (test code = 1069) 0.08 K/UL 0.00-0.20 ABS IMMATURE GRANULOCYTES (test code = 1020) 0.02 K/UL 0.00-0.10 ABS NUCLEATED RBCS (test code = 55128) 0.00 K/UL 0.00-0.11 UNLESS OTHER GOODWIN INDICATED, ALL TESTING PERFORMED AT [facility] [address] [place] [address] BENEFITS REPRESENTATIVE: JUDITH HATCH M.D. CLIA NUMBER [id number] [place]. [id number] CT/NG, NAAT, [id number] 19:56:03* Test Item Value Reference Range Interpretation Comme nts GONORRHEA, NAAT (test code = 67014) NEGATIVE NEGATIVE IMPORTANT NO ARSH: SEE ANNOUNCEMENT AT [email or web address] Note: Assay methodology is nucleic acid amplification by quality auditor mediated amplification (TMA) utilizing the Aptima Combo 2 Assay. CHLAMYDIA, NAAT (test code = 78934) NEGATIVE NEGATIVE IMPORTANT NO ARSH: SEE ANNOUNCEMENT AT [email or web address] Note: Assay methodology is nucleic acid amplification by quality auditor mediated amplification (TMA) utilizing the Aptima Combo 2 Assay. PAP TEST, THINPREP, [id number] 16:22:39* Test Item Value Reference Range Interpretation Comme nts SOURCE: (test code = 8001) Cervical/Endo cervical SLIDES: (test code = 8011) 1 LMP: (test code = 8021) 05/17/2021 SPECIMEN ADEQUACY: (test code = 91992) (NOTE) Satisfactory for evaluation. Endocervical cells/transformation zone component present. INTERPRETATION: (test code = 52057) NILM/NO EPITH. ABNORMALITY;S EE BELOW ---- NEGATIVE FOR INTRAEPITHELIAL LESION OR MALIGNANCY (NILM) - BARREL COOPER: (test code = 8101) CHI Mckeon(ASCP) IAC LOCATION: (test code = 48880) (NOTE) Specimens proces sed and interpreted at [facility], [address] [place] [address], , CLIA: [id number] CPT: (test code = 8140) (NOTE) 19[address] UNLESS OTH ERWISE INDICATED, COMPUTER AIDED AND BARREL COOPER SCREENING PERFORMED. The Pap test is a screening test with an inherent, but low probability of error. Your patient should be reminded to consult you immediately if she experiences any suspicious signs or symptoms, regardless of her Pap test result. An alternate report format containing images or consolidated prior Pap history is available as applicable. UNLESS OTHERWISE INDICATED, ALL TESTING PERFORMED [facility] [address] [place] [address] BENEFITS REPRESENTATIVE: MAGALI STEELE M.D. CLIA NUMBER [id number] [facility] [place]. [id number] VAGINAL PATHOGENS DNA [id number] 12:53:52* Test Item Value Reference Range Interpretation Comme nts CHRISTI SPECIES (test code = 82210) NEGATIVE NEGATIVE G. VAGINALIS (test code = 49875) POSITIVE NEGATIVE A T. VAGINALIS (test code = 80868) NEGATIVE NEGATIVE UNLESS OTHERWISE INDICATED, ALL TESTING PERFORMED [facility] [address] [place] [address] BENEFITS REPRESENTATIVE: MAGALI STEELE M.D. CLIA NUMBER [id number] [place]. [id number] 05:29:53* Test Item Value Reference Range Interpretation Comme nts RPR RESULT (test code = 3501) NON-REACTIVE NON-REACTIVE RPR TITER (test code = 3500) NOT INDIC. TITER NOT INDIC. HIV 1/2 4TH GEN, RFLX [id number] 03:00:58* Test Item Value Reference Range Interpretation Comme nts HIV 1/2 4TH GEN, RFLX CONF ( test code = 3514) NON-REACTIVE NON-REACTIVE HEPATITIS PANEL, [id number] 03:00:58* Test Item Value Reference Range Interpretation Comme nts HEPATITIS A IgM (test code = 16286) NON-REACTIVE NON-REACTIVE HEPATITIS B CORE IgM (test code = 4644) NON-REACTIVE NON-REACTIVE HEPATITIS B SURF AG (test code = 2739) NON-REACTIVE NON-REACTIVE HEPATITIS C ANTIBODY (test code = 4675) NON-REACTIVE NON-REACTIVE INTERPRETATION HEPATITIS A: (test code = 2552) (NOTE) Hepatitis A serology shows no evidence of acute hepatitis A. INTERPRETATION HEPATITIS B: (test code = 28674) (NOTE) Hepatitis B serology shows no evidence of acute hepatitis B andno indication of exposure to hepatitis B virus in the previous chucky eight months. INTERPRETATION HEPATITIS C: (test code = 24371) (NOTE) Hepatitis C serology shows no evidence of exposure to hepatitisC virus at this time. It can take up to 12 months after exposure tothe hepatitis C virus for antibodies to become detectable in the blood in certain patients. UR HCG [id number] 22:34:00* Test Item Value Reference Range Interpretation Comme nts UR HCG QUAL (test code = HCGQLU) NEGATIVE NEGATIVE BASIC METABOLIC [id number] 21:58:00* Test Item Value Reference Range Interpretation Comme nts SODIUM (test code = NA) 140 mmol/l 134.0-147.0 N POTASSIUM (test code = K) 4.3 mmol/L 3.6-5.2 N CHLORIDE (test code = CL) 104 mmol/l 98.0-107.0 N CARBON DIOXIDE (test code = CO2) 29.5 mmol/l 21.0-33.0 N ANION GAP (test code = GAP) 10.8 0-20 N GLUCOSE (test code = GLU) 99 mg/dl 70.0-110.0 N BLOOD UREA NITROGEN (test co de = BUN) 15 mg/dl 7.0-18.0 N CREATININE (test code = CREAT) 0.88 mg/dL 0.60-1.30 N GFR NON BLACK (test code = GFRNONBLACK) 79 mL/min 105-110 L GFR BLACK (test code = GFRBLACK) 95 mL/min 127-133 L CALCIUM (test code = CA) 9.5 mg/dl 8.0-10.5 N Specimen comments: .Specimen comments: Clean CatchHEPATIC FUNCTION PANEL A 2018-05-28 21:58:00* Test Item Value Reference Range Interpretation Comme nts TOTAL PROTEIN (test code = PROT) 7.6 GM/DL 6.0-8.1 N ALBUMIN (test code = ALB) 4.0 gm/dL 3.2-4.7 N BILIRUBIN TOTAL (test code = BILT) 0.1 mg/dl 0.0-1.0 N BILIRUBIN DIRECT (test code = BILD) 0.1 mg/dl 0.0-0.3 N SGOT/AST (test code = AST) 22 Units/L 15.0-37.0 N SGPT/ALT (test code = ALT) 26 Units/L 12.0-78.0 N ALKALINE PHOSPHATASE TOTAL ( test code = ALKP) 100 Units/L 50.0-136.0 N Specimen comments: .Specimen comments: Clean [id number] 21:58:00* Test Item Value Reference Range Interpretation Comme nts LIPASE (test code = LIP) 110 Units/L 65.0-230.0 N Specimen comments: .Specimen comments: Clean CatchB-TYPE NATRIURETIC PEPTIDE 2018-05-28 21:58:00* Test Item Value Reference Range Interpretation Comme nts B-TYPE NATRIURETIC PEPTIDE ( test code = BNP) <5.0 PG/ML 5-100 L Specimen comments: .Specimen comments: Clean CatchCARDIAC ENZYMES PROFILE 2018-05-28 21:58:00* Test Item Value Reference Range Interpretation Comme nts CREATINE KINASE (CK) (test code = CK) 87 Units/L 26-192 N CKMB (test code = CKMBT) 0.9 NG/ML 0.5-5.0 N DISREGARD CKMB I NDEX CALCULATION WHENEVER THE CKMBT ISREPORTED <0.5 CKMB INDEX (test code = CKMBI) 1.0 0.0-2.5 N TROPONIN-I (test code = TROPI) <0.02 NG/ML 0.00-0.06 N REFERENCE RANGE TROPONIN I HEALTHY INDIVIDUALS: <0.06 ng/mL R/O ISCHEMIA: 0.07 - 0.60 ng/mL CUT-OFF RANGE FOR AMI: 0.60 - 1.5 ng/mL Specimen comments: .Specimen comments: Karime BriceBASIC METABOLIC PANEL 2018-05-28 21:54:00* Test Item Value Reference Range Interpretation Comme nts SODIUM (test code = NA) 140 mmol/l 134.0-147.0 N POTASSIUM (test code = K) 4.3 mmol/L 3.6-5.2 N CHLORIDE (test code = CL) 104 mmol/l 98.0-107.0 N CARBON DIOXIDE (test code = CO2) 29.5 mmol/l 21.0-33.0 N ANION GAP (test code = GAP) 10.8 0-20 N GLUCOSE (test code = GLU) mg/dl 70.0-110.0 BLOOD UREA NITROGEN (test co de = BUN) mg/dl 7.0-18.0 CREATININE (test code = CREAT) mg/dL 0.60-1.30 GFR NON BLACK (test code = GFRNONBLACK) mL/min 105-110 GFR BLACK (test code = GFRBLACK) mL/min 127-133 CALCIUM (test code = CA) mg/dl 8.0-10.5 Specimen comments: .Specimen comments: Karime [employer] Solar ConcentratorHEPATIC FUNCTION PANEL A 2018-05-28 21:54:00* Test Item Value Reference Range Interpretation Comme nts TOTAL PROTEIN (test code = PROT) gm/dL 6.4-8.2 ALBUMIN (test code = ALB) gm/dl 3.2-4.7 BILIRUBIN TOTAL (test code = BILT) mg/dl 0.0-1.0 BILIRUBIN DIRECT (test code = BILD) mg/dl 0.0-0.3 SGOT/AST (test code = AST) Units/L 15.0-37.0 SGPT/ALT (test code = ALT) Units/L 12.0-78.0 ALKALINE PHOSPHATASE TOTAL ( test code = ALKP) Units/L 50.0-136.0 Specimen comments: .Specimen comments: Karime [id number] 21:54:00* Test Item Value Reference Range Interpretation Comme nts LIPASE (test code = LIP) Units/L 65.0-230.0 Specimen comments: .Specimen comments: Clean CatchB-TYPE NATRIURETIC PEPTIDE 2018-05-28 21:54:00* Test Item Value Reference Range Interpretation Comme nts B-TYPE NATRIURETIC PEPTIDE ( test code = BNP) <5.0 PG/ML 5-100 L Specimen comments: .Specimen comments: Clean CatchCARDIAC ENZYMES PROFILE 2018-05-28 21:54:00* Test Item Value Reference Range Interpretation Comme nts CREATINE KINASE (CK) (test code = CK) Units/L 26-192 CKMB (test code = CKMBT) NG/ML 0.5-5.0 CKMB INDEX (test code = CKMBI) 0.0-2.5 TROPONIN-I (test code = TROPI) NG/ML 0.00-0.06 Specimen comments: .Specimen comments: Clean CatchPROTHROMBIN [id number] 21:49:00* Test Item Value Reference Range Interpretation Comme [facility] PROTHROMBIN TIME PATIENT (test code = PTP) 10.1 SECONDS 9.9-12.8 N INTERNATIONAL NORMAL RATIO (test code = INR) 0.9 0.89-1.14 N THE INR IS TO BE USED ONLY FOR MONITORING ORAL ANTICOAGULANTTHERAPY. THE FOLLOWING ARE SUGGESTED RANGES FROM THEAMERICAN COLLEGE OF CHEST PHYSICIANS:INDICATION INR VALUEPROPHYLAXIS OF VENOUS THROMBOSIS (ORTHOPEDIC SURGERY) 2.0 - 3.0PROPHYLAXIS OF VENOUS THROMBOSIS (OTHER THAN HIGH-RISK SURGERY) 2.0 - 3.0TREATMENT OF DEEP VEIN THROMBOSIS OR PULMONARY EMBOLISM 2.0 - 3.0PREVENTION OF SYSTEMIC EMBOLISM TISSUE HEART VALVES 2.0 - 3.0 ACUTE MYOCARDIAL INFARCTION (TO PREVENT SYSTEMIC EMBOLISM) 2.0 - 3.0 ACUTE MYOCARDIAL INFARCTION (TO PREVENT RECURRENT INFARCT) 2.5 - 3.0 VALVULAR HEART DISEASE 2.0 - 3.0 ATRIAL FIBRILATION 2.0 - 3.0BILEAFLET MECHANICAL VALVE IN AORTIC POSITION 2.0 - 3.0MECHANICAL PROSTHETIC VALVES (HIGH RISK) 2.5 - 3.5PRESENCE OF LUPUS ANTICOAGULANT OR ANTIPHOSPHOLIPID ANTIBODIES 2.5 - 3.5 Specimen comments: .THROMBOPLASTIN TIME [id number] 21:49:00* Test Item Value Reference Range Interpretation Comme nts THROMBOPLASTIN TIME PARTIAL (test code = PTT) 30.00 SECONDS 25.86-36.07 [facility] Therapeutic Range - APTT of 55.8-85.4 secondscorrelates with plasma heparin concentration of 0.2-0.4 u/mL New range effective - 05/21/2016 Specimen comments: .DRUGS OF ABUSE SCREEN [id number] 21:45:00* Test Item Value Reference Range Interpretation Comme nts URN COCAINE (test code = COCAURN) NEGATIVE NEGATIVE Cocaine cut-off concentration: 300 ng/mL URN CANNABINOIDS (test code = CANNABURN) NEGATIVE NEGATIVE Cannabinoids c ut-off concentration: 50 ng/mL URN AMPHETAMINE (test code = AMPHETURN) NEGATIVE NEGATIVE Amphetamine cu t-off concentration: 1000 ng/mL URN BARBITURATE (test code = BARBITURN) NEGATIVE NEGATIVE Barbiturate cu t-off concentration: 200 ng/mL URN BENZODIAZEPINE (test code = BENZOURN) NEGATIVE NEGATIVE Benzodiaz epine cut-off concentration: 200 ng/mL URN OPIATES (test code = OPIATURN) NEGATIVE NEGATIVE Opiates cut-off concentration: 200 ng/mL URN PHENCYCLIDINE (PCP) (test code = PHENCURN) NEGATIVE NEGATIVE Phencycli dine(PCP) cut-off concentration: 25 ng/ml URN METHADONE (test code = METHAURN) NEGATIVE NEGATIVE Methadone cut-o ff concentration: 300 ng/mL Specimen comments: Clean CatchURINALYSIS [id number] 21:44:00* Test Item Value Reference Range Interpretation Comme nts UA COLOR (test code = COLU) YELLOW UA APPEARANCE (test code = APPU) CLEAR UA GLUCOSE DIPSTICK (test code = DGLUU) NORMAL mg/dl NORMAL UA BILIRUBIN DIPSTICK (test code = BILU) NEGATIVE mg/dL NEGATIVE UA KETONE DIPSTICK (test code = KETU) NEGATIVE mg/dl NEGATIVE UA SPECIFIC GRAVITY (test code = SGU) 1.010 1.000-1.030 UA BLOOD DIPSTICK (test code = ASHA) NEGATIVE Cory/micL NEGATIVE UA PH DIPSTICK (test code = MERLY) 6.0 5.0-9.0 UA PROTEIN DIPSTICK (test code = PROU) NEGATIVE mg/dl NEGATIVE UA UROBILINIOGEN DIPSTICK (test code = URO) NORMAL mg/dl NORMAL UA NITRITE DIPSTICK (test code = VAHID) NEGATIVE NEGATIVE UA LEUKOCYTE ESTERASE DIPSTICK (test code = LEUU) NEGATIVE Forest/micL NEGATIVE UA WBC (test code = WBCU) 0-2 WBC/HPF NONE UA RBC (test code = RBCU) 0-2 RBC/HPF 0-3 UA EPITHELIAL CELLS (test code = EPIU) 2-5 EPI/HPF 0-3 A UA BACTERIA (test code = BACU) FEW NONE Specimen comments: Clean CatchBASIC METABOLIC [id number] 21:43:00* Test Item Value Reference Range Interpretation Comme nts SODIUM (test code = NA) 140 mmol/l 134.0-147.0 N POTASSIUM (test code = K) 4.3 mmol/L 3.6-5.2 N CHLORIDE (test code = CL) 104 mmol/l 98.0-107.0 N CARBON DIOXIDE (test code = CO2) 29.5 mmol/l 21.0-33.0 N ANION GAP (test code = GAP) 10.8 0-20 N GLUCOSE (test code = GLU) mg/dl 70.0-110.0 BLOOD UREA NITROGEN (test co de = BUN) mg/dl 7.0-18.0 CREATININE (test code = CREAT) mg/dL 0.60-1.30 GFR NON BLACK (test code = GFRNONBLACK) mL/min 105-110 GFR BLACK (test code = GFRBLACK) mL/min 127-133 CALCIUM (test code = CA) mg/dl 8.0-10.5 Specimen comments: .Specimen comments: LocallyHEPATIC FUNCTION PANEL A 2018-05-28 21:43:00* Test Item Value Reference Range Interpretation Comme nts TOTAL PROTEIN (test code = PROT) gm/dL 6.4-8.2 ALBUMIN (test code = ALB) gm/dl 3.2-4.7 BILIRUBIN TOTAL (test code = BILT) mg/dl 0.0-1.0 BILIRUBIN DIRECT (test code = BILD) mg/dl 0.0-0.3 SGOT/AST (test code = AST) Units/L 15.0-37.0 SGPT/ALT (test code = ALT) Units/L 12.0-78.0 ALKALINE PHOSPHATASE TOTAL ( test code = ALKP) Units/L 50.0-136.0 Specimen comments: .Specimen comments: Clean [id number] 21:43:00* Test Item Value Reference Range Interpretation Comme nts LIPASE (test code = LIP) Units/L 65.0-230.0 Specimen comments: .Specimen comments: Clean CatchB-TYPE NATRIURETIC PEPTIDE 2018-05-28 21:43:00* Test Item Value Reference Range Interpretation Comme nts B-TYPE NATRIURETIC PEPTIDE ( test code = BNP) PG/ML 5-100 Specimen comments: .Specimen comments: Clean CatchCARDIAC ENZYMES PROFILE 2018-05-28 21:43:00* Test Item Value Reference Range Interpretation Comme nts CREATINE KINASE (CK) (test code = CK) Units/L 26-192 CKMB (test code = CKMBT) NG/ML 0.5-5.0 CKMB INDEX (test code = CKMBI) 0.0-2.5 TROPONIN-I (test code = TROPI) NG/ML 0.00-0.06 Specimen comments: .Specimen comments: Clean CatchCBC W/AUTO [id number] 21:42:00* Test Item Value Reference Range Interpretation Comme nts WHITE BLOOD CELL (test code = WBC) 8.6 K/mm3 4.5-11.0 N RED BLOOD CELL (test code = RBC) 4.46 M/mm3 3.80-5.20 N HEMOGLOBIN (test code = HGB) 14.6 gm/dL 12.0-16.0 N HEMATOCRIT (test code = HCT) 43.9 % 36.0-48.0 N MEAN CELL VOLUME (test code = MCV) 98.4 UM3 82.0-99.0 N MEAN CELL HGB (test code = MCH) 32.7 UUG 25.5-32.5 H MEAN CELL HGB CONCETRATION (test code = MCHC) 33.3 gm/dL 29.0-35.5 N RED CELL DISTRIBUTION WIDTH (test code = RDW) 13.0 % 11.5-15.0 N RED CELL DISTRIBUTION WIDTH SD (test code = RDW-SD) 47.1 fL 34.8-50.2 N PLATELET COUNT (test code = PLT) 284 K/mm3 150-400 N MEAN PLATELET VOLUME (test c ode = MPV) 10.1 fl 7.4-10.4 N NEUTROPHIL % (test code = NT%) 41.4 % 49.0-76.0 L IMMATURE GRANULOCYTE % (test code = IG%) 0.2 % 0.0-0.4 N LYMPHOCYTE % (test code = LY%) 38.5 % 23.0-38.0 H MONOCYTE % (test code = MO%) 9.0 % 1.0-10.0 N EOSINOPHIL % (test code = EO%) 9.4 % 1.0-5.0 H BASOPHIL % (test code = BA%) 1.5 % 0.0-1.0 H NEUTROPHIL # (test code = NT#) 3.6 K/mm3 2.4-6.3 N IMMATURE GRANULOCYTE # (test code = IG#) 0.02 x10 3/uL 0.00-0.07 N LYMPHOCYTE # (test code = LY#) 3.3 K/mm3 1.2-4.0 N MONOCYTE # (test code = MO#) 0.8 K/mm3 0.0-0.6 H EOSINOPHIL # (test code = EO#) 0.8 K/MM3 0.0-0.7 H BASOPHIL # (test code = BA#) 0.1 K/mm3 0.0-0.2 N URINALYSIS [id number] 21:36:00* Test Item Value Reference Range Interpretation Comme nts UA COLOR (test code = COLU) YELLOW UA APPEARANCE (test code = APPU) CLEAR UA GLUCOSE DIPSTICK (test code = DGLUU) NORMAL mg/dl NORMAL UA BILIRUBIN DIPSTICK (test code = BILU) NEGATIVE mg/dL NEGATIVE UA KETONE DIPSTICK (test code = KETU) NEGATIVE mg/dl NEGATIVE UA SPECIFIC GRAVITY (test code = SGU) 1.010 1.000-1.030 UA BLOOD DIPSTICK (test code = ASHA) NEGATIVE Cory/micL NEGATIVE UA PH DIPSTICK (test code = MERLY) 6.0 5.0-9.0 UA PROTEIN DIPSTICK (test code = PROU) NEGATIVE mg/dl NEGATIVE UA UROBILINIOGEN DIPSTICK (test code = URO) NORMAL mg/dl NORMAL UA NITRITE DIPSTICK (test code = VAHID) NEGATIVE NEGATIVE UA LEUKOCYTE ESTERASE DIPSTICK (test code = LEUU) NEGATIVE Forest/micL NEGATIVE UA WBC (test code = WBCU) WBC/HPF NONE UA RBC (test code = RBCU) RBC/HPF 0-3 UA EPITHELIAL CELLS (test code = EPIU) EPI/HPF 0-3 UA BACTERIA (test code = BACU) NONE Specimen comments: Clean Catch- XR CHEST 1 [id number] 20:33:00FAX: Patricia Krueger MD [phone] [place]: St: PRE Name: DUNG HDEZ [facility] : 1985 Age/S: 32/F [address] Unit #: [id number] Loc: [place], [place]: [place] [id number] Acct: [id number] Dis Date: Status: PRE ER PHONE #: [phone] Exam Date: 05/28/20182026 FAX #: [phone] Reason: SOB EXAMS: CPT CODE: [id number] XR CHEST 1 V 74515 R16 EXAM: - XR CHEST 1 V HISTORY: SOB COMPARISON: 05/07/2018 FINDINGS: The lungs are clear. No pleural effusion or pneumothorax. The cardiac silhouette is within normal limits. No acute osseous abnormalities. IMPRESSION: No acute cardiopulmonary disease. at 2032 Reported and signed by: Markos Peña M.D. CC: Patricia Krueger MD Technologist: WAYNE RIVAS Trnscrd Date/Time/By: 05/28/2018 (2032) : By: [id number] PAGE 1 Signed Report FAX: Patricia Krueger MD [phone] [place]: St: PRE ---- Name: DUNG HDEZ [facility] : 1985 Age/S: 32/F [address] Unit#: [id number] Loc: [place], [place]: [place] [id number] Acct: [id number] Dis Date: Status: PRE ER PHONE #: [phone] Exam Date: 05/28/20182026 FAX #: [phone] Reason: SOB EXAMS: CPT CODE: [id number] XR CHEST 1 V 90119 (Continued) Orig Print D/T: S: 05/28/2018 (2035) PAGE 2 Signed ReportBASIC METABOLIC [id number] 10:42:00* Test Item Value Reference Range Interpretation Comme nts SODIUM (test code = NA) 138 mmol/l 134.0-147.0 N POTASSIUM (test code = K) 4.2 mmol/L 3.6-5.2 N CHLORIDE (test code = CL) 102 mmol/l 98.0-107.0 N CARBON DIOXIDE (test code = CO2) 24.8 mmol/l 21.0-33.0 N ANION GAP (test code = GAP) 15.4 0-20 N GLUCOSE (test code = GLU) 97 mg/dl 70.0-110.0 N BLOOD UREA NITROGEN (test co de = BUN) 12 mg/dl 7.0-18.0 N CREATININE (test code = CREAT) 0.79 mg/dL 0.60-1.30 N GFR NON BLACK (test code = GFRNONBLACK) 89 mL/min 105-110 L GFR BLACK (test code = GFRBLACK) 108 mL/min 127-133 L CALCIUM (test code = CA) 9.7 mg/dl 8.0-10.5 N Specimen comments: .Specimen comments: Clean CatchHEPATIC FUNCTION PANEL A 2018-05-07 10:42:00* Test Item Value Reference Range Interpretation Comme nts TOTAL PROTEIN (test code = PROT) 7.8 GM/DL 6.0-8.1 N ALBUMIN (test code = ALB) 4.1 gm/dL 3.2-4.7 N BILIRUBIN TOTAL (test code = BILT) 0.4 mg/dl 0.0-1.0 N BILIRUBIN DIRECT (test code = BILD) 0.1 mg/dl 0.0-0.3 N SGOT/AST (test code = AST) 23 Units/L 15.0-37.0 N SGPT/ALT (test code = ALT) 27 Units/L 12.0-78.0 N ALKALINE PHOSPHATASE TOTAL ( test code = ALKP) 75 Units/L 50.0-136.0 N Specimen comments: .Specimen comments: Clean [id number] 10:42:00* Test Item Value Reference Range Interpretation Comme nts LIPASE (test code = LIP) 93 Units/L 65.0-230.0 N Specimen comments: .Specimen comments: Clean CatchHCG SERUM [id number] 10:42:00* Test Item Value Reference Range Interpretation Comme nts HCG SERUM QUAL (test code = HCGQL) NEGATIVE NEGATIVE Specimen comments: .Specimen comments: Clean CatchB-TYPE NATRIURETIC PEPTIDE 2018-05-07 10:42:00* Test Item Value Reference Range Interpretation Comme nts B-TYPE NATRIURETIC PEPTIDE ( test code = BNP) <5.0 PG/ML 5-100 L Specimen comments: .Specimen comments: Clean CatchCARDIAC ENZYMES PROFILE 2018-05-07 10:42:00* Test Item Value Reference Range Interpretation Comme nts CREATINE KINASE (CK) (test code = CK) 169 Units/L 26-192 N CKMB (test code = CKMBT) 1.0 NG/ML 0.5-5.0 N DISREGARD CKMB I NDEX CALCULATION WHENEVER THE CKMBT ISREPORTED <0.5 CKMB INDEX (test code = CKMBI) 0.6 0.0-2.5 N TROPONIN-I (test code = TROPI) <0.02 NG/ML 0.00-0.06 N REFERENCE RANGE TROPONIN I HEALTHY INDIVIDUALS: <0.06 ng/mL R/O ISCHEMIA: 0.07 - 0.60 ng/mL CUT-OFF RANGE FOR AMI: 0.60 - 1.5 ng/mL Specimen comments: .Specimen comments: Clean CatchBASIC METABOLIC PANEL 2018-05-07 10:36:00* Test Item Value Reference Range Interpretation Comme nts SODIUM (test code = NA) 138 mmol/l 134.0-147.0 N POTASSIUM (test code = K) 4.2 mmol/L 3.6-5.2 N CHLORIDE (test code = CL) 102 mmol/l 98.0-107.0 N CARBON DIOXIDE (test code = CO2) 24.8 mmol/l 21.0-33.0 N ANION GAP (test code = GAP) 15.4 0-20 N GLUCOSE (test code = GLU) mg/dl 70.0-110.0 BLOOD UREA NITROGEN (test co de = BUN) mg/dl 7.0-18.0 CREATININE (test code = CREAT) mg/dL 0.60-1.30 GFR NON BLACK (test code = GFRNONBLACK) mL/min 105-110 GFR BLACK (test code = GFRBLACK) mL/min 127-133 CALCIUM (test code = CA) mg/dl 8.0-10.5 Specimen comments: .Specimen comments: LocallyHEPATIC FUNCTION PANEL A 2018-05-07 10:36:00* Test Item Value Reference Range Interpretation Comme nts TOTAL PROTEIN (test code = PROT) gm/dL 6.4-8.2 ALBUMIN (test code = ALB) gm/dl 3.2-4.7 BILIRUBIN TOTAL (test code = BILT) mg/dl 0.0-1.0 BILIRUBIN DIRECT (test code = BILD) mg/dl 0.0-0.3 SGOT/AST (test code = AST) Units/L 15.0-37.0 SGPT/ALT (test code = ALT) Units/L 12.0-78.0 ALKALINE PHOSPHATASE TOTAL ( test code = ALKP) Units/L 50.0-136.0 Specimen comments: .Specimen comments: Clean [id number] 10:36:00* Test Item Value Reference Range Interpretation Comme nts LIPASE (test code = LIP) Units/L 65.0-230.0 Specimen comments: .Specimen comments: Clean [employer] Solar ConcentratorHCG SERUM [id number] 10:36:00* Test Item Value Reference Range Interpretation Comme nts HCG SERUM QUAL (test code = HCGQL) NEGATIVE NEGATIVE Specimen comments: .Specimen comments: Clean [employer] Solar ConcentratorB-TYPE NATRIURETIC PEPTIDE 2018-05-07 10:36:00* Test Item Value Reference Range Interpretation Comme nts B-TYPE NATRIURETIC PEPTIDE ( test code = BNP) <5.0 PG/ML 5-100 L Specimen comments: .Specimen comments: Clean [employer] Solar ConcentratorCARDIAC ENZYMES PROFILE 2018-05-07 10:36:00* Test Item Value Reference Range Interpretation Comme nts CREATINE KINASE (CK) (test code = CK) Units/L 26-192 CKMB (test code = CKMBT) NG/ML 0.5-5.0 CKMB INDEX (test code = CKMBI) 0.0-2.5 TROPONIN-I (test code = TROPI) NG/ML 0.00-0.06 Specimen comments: .Specimen comments: Clean CatchTHROMBOPLASTIN TIME PARTIAL 2018-05-07 10:31:00* Test Item Value Reference Range Interpretation Comme nts THROMBOPLASTIN TIME PARTIAL (test code = PTT) 30.10 SECONDS 25.86-36.07 [facility] Therapeutic Range - APTT of 55.8-85.4 secondscorrelates with plasma heparin concentration of 0.2-0.4 u/mL New range - 05/21/2016 Specimen comments: .URINALYSIS [id number] 10:31:00* Test Item Value Reference Range Interpretation Comme nts UA COLOR (test code = COLU) YELLOW UA APPEARANCE (test code = APPU) CLEAR UA GLUCOSE DIPSTICK (test code = DGLUU) NORMAL mg/dl NORMAL UA BILIRUBIN DIPSTICK (test code = BILU) NEGATIVE mg/dL NEGATIVE UA KETONE DIPSTICK (test code = KETU) NEGATIVE mg/dl NEGATIVE UA SPECIFIC GRAVITY (test code = SGU) 1.015 1.000-1.030 UA BLOOD DIPSTICK (test code = ASHA) NEGATIVE Cory/micL NEGATIVE UA PH DIPSTICK (test code = MERLY) 7.0 5.0-9.0 UA PROTEIN DIPSTICK (test code = PROU) NEGATIVE mg/dl NEGATIVE UA UROBILINIOGEN DIPSTICK (test code = URO) NORMAL mg/dl NORMAL UA NITRITE DIPSTICK (test code = VAHID) NEGATIVE NEGATIVE UA LEUKOCYTE ESTERASE DIPSTICK (test code = LEUU) 25 Forest/micL Forest/micL NEGATIVE A UA WBC (test code = WBCU) 3-5/HPF WBC/HPF NONE UA RBC (test code = RBCU) 0-2 RBC/HPF 0-3 UA EPITHELIAL CELLS (test code = EPIU) 1-3 EPI/HPF 0-3 UA BACTERIA (test code = BACU) FEW NONE UA MUCUS (test code = MUCU) TRACE UA TRICHOMONAS (test code = TRICHU) FEW NEGATIVE Specimen comments: Clean CatchBASIC METABOLIC [id number] 10:26:00* Test Item Value Reference Range Interpretation Comme nts SODIUM (test code = NA) 138 mmol/l 134.0-147.0 N POTASSIUM (test code = K) 4.2 mmol/L 3.6-5.2 N CHLORIDE (test code = CL) 102 mmol/l 98.0-107.0 N CARBON DIOXIDE (test code = CO2) 24.8 mmol/l 21.0-33.0 N ANION GAP (test code = GAP) 15.4 0-20 N GLUCOSE (test code = GLU) mg/dl 70.0-110.0 BLOOD UREA NITROGEN (test co de = BUN) mg/dl 7.0-18.0 CREATININE (test code = CREAT) mg/dL 0.60-1.30 GFR NON BLACK (test code = GFRNONBLACK) mL/min 105-110 GFR BLACK (test code = GFRBLACK) mL/min 127-133 CALCIUM (test code = CA) mg/dl 8.0-10.5 Specimen comments: .Specimen comments: Clean CatchHEPATIC FUNCTION PANEL A 2018-05-07 10:26:00* Test Item Value Reference Range Interpretation Comme nts TOTAL PROTEIN (test code = PROT) gm/dL 6.4-8.2 ALBUMIN (test code = ALB) gm/dl 3.2-4.7 BILIRUBIN TOTAL (test code = BILT) mg/dl 0.0-1.0 BILIRUBIN DIRECT (test code = BILD) mg/dl 0.0-0.3 SGOT/AST (test code = AST) Units/L 15.0-37.0 SGPT/ALT (test code = ALT) Units/L 12.0-78.0 ALKALINE PHOSPHATASE TOTAL ( test code = ALKP) Units/L 50.0-136.0 Specimen comments: .Specimen comments: Clean [id number] 10:26:00* Test Item Value Reference Range Interpretation Comme nts LIPASE (test code = LIP) Units/L 65.0-230.0 Specimen comments: .Specimen comments: Clean CatchHCG SERUM [id number] 10:26:00* Test Item Value Reference Range Interpretation Comme nts HCG SERUM QUAL (test code = HCGQL) NEGATIVE NEGATIVE Specimen comments: .Specimen comments: Clean CatchB-TYPE NATRIURETIC PEPTIDE 2018-05-07 10:26:00* Test Item Value Reference Range Interpretation Comme nts B-TYPE NATRIURETIC PEPTIDE ( test code = BNP) PG/ML 5-100 Specimen comments: .Specimen comments: Clean CatchCARDIAC ENZYMES PROFILE 2018-05-07 10:26:00* Test Item Value Reference Range Interpretation Comme nts CREATINE KINASE (CK) (test code = CK) Units/L 26-192 CKMB (test code = CKMBT) NG/ML 0.5-5.0 CKMB INDEX (test code = CKMBI) 0.0-2.5 TROPONIN-I (test code = TROPI) NG/ML 0.00-0.06 Specimen comments: .Specimen comments: Clean CatchDRUGS OF ABUSE SCREEN UR 2018-05-07 10:24:00* Test Item Value Reference Range Interpretation Comments URN COCAINE (test code = COCAURN) NEGATIVE NEGATIVE Cocaine cut-off concentration: 300 ng/mL URN CANNABINOIDS (test code = CANNABURN) POSITIVE NEGATIVE A UNCONFIRMED INIT IAL SCREENING ONLY; SUGGEST ADDITIONALCONFIRMATORY TESTING.Cannabinoids cut-off concentration: 50 ng/mL URN AMPHETAMINE (test code = AMPHETURN) NEGATIVE NEGATIVE Amphetamine cut- off concentration: 1000 ng/mL URN BARBITURATE (test code = BARBITURN) NEGATIVE NEGATIVE Barbiturate cut- off concentration: 200 ng/mL URN BENZODIAZEPINE (test code = BENZOURN) NEGATIVE NEGATIVE Benzodiazepine c ut-off concentration: 200 ng/mL URN OPIATES (test code = OPIATURN) NEGATIVE NEGATIVE Opiates cut-off concentration: 200 ng/mL URN PHENCYCLIDINE (PCP) (test code = PHENCURN) NEGATIVE NEGATIVE Phencyclidine(PC P) cut-off concentration: 25 ng/ml URN METHADONE (test code = METHAURN) NEGATIVE NEGATIVE Methadone cut-o ff concentration: 300 ng/mL Specimen comments: Clean CatchBASIC METABOLIC [id number] 10:23:00* Test Item Value Reference Range Interpretation Comme nts SODIUM (test code = NA) 138 mmol/l 134.0-147.0 N POTASSIUM (test code = K) 4.2 mmol/L 3.6-5.2 N CHLORIDE (test code = CL) 102 mmol/l 98.0-107.0 N CARBON DIOXIDE (test code = CO2) 24.8 mmol/l 21.0-33.0 N ANION GAP (test code = GAP) 15.4 0-20 N GLUCOSE (test code = GLU) mg/dl 70.0-110.0 BLOOD UREA NITROGEN (test co de = BUN) mg/dl 7.0-18.0 CREATININE (test code = CREAT) mg/dL 0.60-1.30 GFR NON BLACK (test code = GFRNONBLACK) mL/min 105-110 GFR BLACK (test code = GFRBLACK) mL/min 127-133 CALCIUM (test code = CA) mg/dl 8.0-10.5 Specimen comments: .Specimen comments: LocallyHEPATIC FUNCTION PANEL A 2018-05-07 10:23:00* Test Item Value Reference Range Interpretation Comme nts TOTAL PROTEIN (test code = PROT) gm/dL 6.4-8.2 ALBUMIN (test code = ALB) gm/dl 3.2-4.7 BILIRUBIN TOTAL (test code = BILT) mg/dl 0.0-1.0 BILIRUBIN DIRECT (test code = BILD) mg/dl 0.0-0.3 SGOT/AST (test code = AST) Units/L 15.0-37.0 SGPT/ALT (test code = ALT) Units/L 12.0-78.0 ALKALINE PHOSPHATASE TOTAL ( test code = ALKP) Units/L 50.0-136.0 Specimen comments: .Specimen comments: Clean [id number] 10:23:00* Test Item Value Reference Range Interpretation Comme nts LIPASE (test code = LIP) Units/L 65.0-230.0 Specimen comments: .Specimen comments: Clean [employer] ConcentratorHCG SERUM [id number] 10:23:00* Test Item Value Reference Range Interpretation Comme nts HCG SERUM QUAL (test code = HCGQL) NEGATIVE Specimen comments: .Specimen comments: LocallyB-TYPE NATRIURETIC PEPTIDE 2018-05-07 10:23:00* Test Item Value Reference Range Interpretation Comme nts B-TYPE NATRIURETIC PEPTIDE ( test code = BNP) PG/ML 5-100 Specimen comments: .Specimen comments: LocallyCARDIAC ENZYMES PROFILE 2018-05-07 10:23:00* Test Item Value Reference Range Interpretation Comme nts CREATINE KINASE (CK) (test code = CK) Units/L 26-192 CKMB (test code = CKMBT) NG/ML 0.5-5.0 CKMB INDEX (test code = CKMBI) 0.0-2.5 TROPONIN-I (test code = TROPI) NG/ML 0.00-0.06 Specimen comments: .Specimen comments: Clean CatchCBC W/O [id number] 10:20:00* Test Item Value Reference Range Interpretation Comme nts WHITE BLOOD CELL (test code = WBC) 7.9 K/mm3 4.5-11.0 N RED BLOOD CELL (test code = RBC) 4.75 M/mm3 3.80-5.20 N HEMOGLOBIN (test code = HGB) 15.7 gm/dL 12.0-16.0 N HEMATOCRIT (test code = HCT) 45.4 % 36.0-48.0 N MEAN CELL VOLUME (test code = MCV) 95.6 UM3 82.0-99.0 N MEAN CELL HGB (test code = MCH) 33.1 UUG 25.5-32.5 H MEAN CELL HGB CONCETRATION ( test code = MCHC) 34.6 gm/dL 29.0-35.5 N RED CELL DISTRIBUTION WIDTH (test code = RDW) 12.9 % 11.5-15.0 N PLATELET COUNT (test code = PLT) 253 K/mm3 150-400 N MEAN PLATELET VOLUME (test c ode = MPV) 9.4 fl 7.4-10.4 N Specimen comments: .URINALYSIS [id number] 10:17:00* Test Item Value Reference Range Interpretation Comme nts UA COLOR (test code = COLU) UA APPEARANCE (test code = APPU) UA GLUCOSE DIPSTICK (test code = DGLUU) NORMAL mg/dl NORMAL UA BILIRUBIN DIPSTICK (test code = BILU) NEGATIVE mg/dL NEGATIVE UA KETONE DIPSTICK (test code = KETU) NEGATIVE mg/dl NEGATIVE UA SPECIFIC GRAVITY (test code = SGU) 1.015 1.000-1.030 UA BLOOD DIPSTICK (test code = ASHA) NEGATIVE Cory/micL NEGATIVE UA PH DIPSTICK (test code = MERLY) 7.0 5.0-9.0 UA PROTEIN DIPSTICK (test code = PROU) NEGATIVE mg/dl NEGATIVE UA UROBILINIOGEN DIPSTICK (test code = URO) NORMAL mg/dl NORMAL UA NITRITE DIPSTICK (test code = VAHID) NEGATIVE NEGATIVE UA LEUKOCYTE ESTERASE DIPSTICK (test code = LEUU) 25 Forest/micL Forest/micL NEGATIVE A UA WBC (test code = WBCU) WBC/HPF NONE UA RBC (test code = RBCU) RBC/HPF 0-3 UA EPITHELIAL CELLS (test code = EPIU) EPI/HPF 0-3 UA BACTERIA (test code = BACU) NONE Specimen comments: Clean Catch- XR CHEST 1 [id number] 09:58:00FAX: Patricia Krueger MD [phone] [place]: St: REG Name: DUNG HDEZ [facility] : 1985 Age[facility]S: 32/F [facility] Unit [facility]: [id number] Loc: [place], [place] Phys: [place] [id number] Acct: [id number] Dis Date: Status: REG ER PHONE #: [phone] Exam Date: 05/07/2018 0950 FAX #: [phone] Reason: SOB EXAMS: CPT CODE: [id number] XR CHEST 1 V 10759 Examination: Chest 1 viewLocation code: S17 Comparison: None Discussion: Clinical history is remarkable for shortness of breath, chest pain. Cardiac silhouette is normal in size. No consolidation, effusion, or pneumothorax is appreciated. The osseous structures are unremarkable. Impression: 1. No acute abnormality. at 0958 Reported and signed by: Liu Washington M.D. CC: Patricia Krueger MD Technologist: PRAVIN ESPARZA [facility] Date/Time/By: 05/07/2018 (0958) : By: [email or web address] PAGE 1 Signed Report FAX: Patricia Krueger MD [phone] [place]: St: REG -- Name: DUNG HDEZ [facility] : 1985 Age/S: 32/F [address] [facility] [employer] [facility] Unit #: [id number] Loc:[place], [place]: [place] [id number] Acct: [id number] Dis Date: Status: REG ER PHONE #: [phone] Exam Date: 05/07/2018 0950 FAX #: [phone] Reason: SOB EXAMS: CPT CODE: [id number] XR CHEST 1 V 84000 (Continued) Orig Print D/T: S: 05/07/2018 (1001) PAGE 2 Signed Report Notes Date/Time Note Provider Source Jesus De La Cruz [facility]2024-11-13 00:00:00 Jesus De La Cruz [facility]2024-05-07 18:41:33 Pt given printed and verbal discharge instructions regarding URI, encouraged hydration, NO Prescriptions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 speech. Psychiatric Reports: Anxiety. Denies: Depression. Additional Review of Systems Eyes Denies: Discharge bilat, Redness bilat. Ears/Nose/Throat Denies: Nasal congestion, Sore throat. Portions of this section were scribed by Lauren Lynn on 05/07/18 at 0944 Past Medical History - Adult Stated Complaint CHEST PAIN Allergies Coded Allergies: egg (Mild, VOMITING 08/22/12) Home Medications Reported Medications No Known Home Medications Discontinued Reported Medications metroNIDAZOLE (FLAGYL) Review of Nursing Notes Rev avail, and agree Past Medical History: Reports: Hypertension. Additional Medical History Anxiety Past Surgical History: Reports: Bilateral tubal ligation. Alcohol Use Denies EtOH use Drug Use Hx of substance abuse Smoking status for patients 13 years old or older: Current some day smoker Portions of this section were scribed by Lauren Lynn on 05/07/18 at 0944 Physical Exam Vital Signs Vital Signs First Documented: Result Date Time Pulse Ox 98 05/07 0931 B/P 133/88 05/07 0931 B/P Mean 103 05/07 0931 O2 Delivery Room air 05/07 0831 Temp 36.7 05/07 0831 Pulse 101 05/07 0931 Resp 16 05/07 0931 O2 Flow Rate [id number] 05/07 0941 Last Documented: Result Date Time Pulse Ox 98 05/07 1216 B/P 132/84 05/07 1216 B/P Mean 100 05/07 1216 O2 Delivery Room air 05/07 1216 Temp 36.8 05/07 1216 Pulse 74 05/07 1216 Resp 16 05/07 1216 O2 Flow Rate 2.279543 05/07 0941 Review of Vital Signs Reviewed Focused PE General/Const General/Const Awake, Alert, No acute distress, Well developed, Well nourished , Cooperative, Not toxic appearing Eyes Eyes PERRL, EOMI, Conjunctiva NL MS Neck Neck Supple, Full range of motion, No swelling Resp/Chest Respiratory/Chest Breath sounds NL, Breath sounds = bilat, No respiratory distress, No rales, No rhonchi, No wheezing Text/Dict Notes Tenderness to costochondral region and L anterior chest wall, reproduces pt's complaint Cardiovascular Cardiovascular Heart rate NL, Regular rhythm, Heart sounds NL, No pedal edema Abdomen/GI Abdomen/GI Soft, Non-tender, No guarding, No distention MS Back Back Inspection NL, Full range of motion, Painless range of motion, Non- tender MS Lower Extrem Lower Ext/Pelvis/MS Inspection NL, Full range of motion, No swelling, Non- tender Skin Skin Color NL, No rash, Warm, Dry, Intact, No swelling Neurologic Neurologic Oriented X3, Speech NL, No motor deficits, No sensory deficits, CN II - XII intact Psychiatric Psychiatric Affect NL, Mood NL Portions of this section were scribed by Lauren Lynn on 05/07/18 at 0948 Interpretation Diagnostics Lab Results Interpretation Results Laboratory Tests 05/07/18 1005: [Embedded Image Not Available] Laboratory Tests: 05/07 1005 Chemistry Sodium (134.0 - 147.0 mmol/l) 138 Potassium (3.6 - 5.2 mmol/L) 4.2 Chloride (98.0 - 107.0 mmol/l) 102 Carbon Dioxide (21.0 - 33.0 mmol/l) 24.8 Anion Gap (0 - 20) 15.4 BUN (7.0 - 18.0 mg/dl) 12 Creatinine (0.60 - 1.30 mg/dL) 0.79 Est GFR ( Amer) (127 - 133 mL/min) 108 L Est GFR (Non-Af Amer) (105 - 110 mL/min) 89 L Glucose (70.0 - 110.0 mg/dl) 97 Calcium (8.0 - 10.5 mg/dl) 9.7 Total Bilirubin (0.0 - 1.0 mg/dl) 0.4 Direct Bilirubin (0.0 - 0.3 mg/dl) 0.1 AST (15.0 - 37.0 Units/L) 23 ALT (12.0 - 78.0 Units/L) 27 Total Alk Phosphatase (50.0 - 136.0 Units/L) 75 Total Creatine Kinase (26 - 192 Units/L) 169 CK-MB (CK-2) (0.5 - 5.0 NG/ML) 1.0 CK-MB (CK-2) Rel Index (0.0 - 2.5) 0.6 Troponin I (0.00 - 0.06 NG/ML) <0.02 B-Natriuretic Peptide (5 - 100 PG/ML) <5.0 L Total Protein (6.0 - 8.1 GM/DL) 7.8 Albumin (3.2 - 4.7 gm/dL) 4.1 Lipase (65.0 - 230.0 Units/L) 93 Serum , Qual (NEGATIVE) NEGATIVE Coagulation PTT (Beau) (25.86 - 36.07 SECONDS) 30.10 Hematology WBC (4.5 - 11.0 K/mm3) 7.9 RBC (3.80 - 5.20 M/mm3) 4.75 Hgb (12.0 - 16.0 gm/dL) 15.7 Hct (36.0 - 48.0 %) 45.4 MCV (82.0 - 99.0 UM3) 95.6 MCH (25.5 - 32.5 UUG) 33.1 H MCHC (29.0 - 35.5 gm/dL) 34.6 RDW (11.5 - 15.0 %) 12.9 Plt Count (150 - 400 K/mm3) 253 MPV (7.4 - 10.4 fl) 9.4 Toxicology Urine Opiates Screen (NEGATIVE) NEGATIVE Urine Methadone Screen (NEGATIVE) NEGATIVE Urine Barbiturates (NEGATIVE) NEGATIVE Ur Phencyclidine Scrn (NEGATIVE) NEGATIVE Ur Amphetamines Screen (NEGATIVE) NEGATIVE U Benzodiazepines Scrn (NEGATIVE) NEGATIVE Urine Cocaine Screen (NEGATIVE) NEGATIVE Urine Cannabinoids (NEGATIVE) POSITIVE H Urines Urine Color YELLOW Urine Appearance CLEAR Urine pH (5.0 - 9.0) 7.0 Ur Specific Alma (1.000 - 1.030) 1.015 Urine Protein (NEGATIVE mg/dl) NEGATIVE Urine Glucose (UA) (NORMAL mg/dl) NORMAL Urine Ketones (NEGATIVE mg/dl) NEGATIVE Urine Blood (NEGATIVE Cory/micL) NEGATIVE Urine Nitrite (NEGATIVE) NEGATIVE Urine Bilirubin (NEGATIVE mg/dL) NEGATIVE Urine Urobilinogen (NORMAL mg/dl) NORMAL Ur Leukocyte Esterase (NEGATIVE Forest/micL) 25 Forest/micL H Urine RBC (0 - 3 RBC/HPF) 0-2 Urine WBC (NONE WBC/HPF) 3-5/HPF Ur Epithelial Cells (0 - 3 EPI/HPF) 1-3 Urine Bacteria (NONE) FEW Urine Mucus TRACE Urine Trichomonas (NEGATIVE) FEW Recent Impressions: RADIOLOGY - XR CHEST 1 V 05/07 0950 Report Impression - Status: SIGNED Entered: 05/07/2018 1001 Impression: 1. No acute abnormality. Impression By: [email or web address] - Liu Washington M.D. Lab Imaging Statement Laboratory radiographic studies reviewed and considered in the medical decision-making. Point of Care Testing Urinalysis Interpretation UA reviewed Pulse Oximetry Pulse Ox % 98 On: Room air Interpretation Interpreted by me, Pulse oximetry normal Time 0931 Test serum HCG reviewed ECG #1 Interpretation ECG Documented in MUSE Yes Date 05/07/18 Time 0953 Interpreted by ED physician NL ECG Interpretation Normal rate, Normal sinus rhythm, No acute ischemic changes, Normal axis, Normal intervals Rate 92 Lab Studies Drug Screen/Level Drug Screen Interpretation Drug screen reviewed Radiography X-Ray Chest View 1 view Interpretation/Wet Read by Interpret - Radiologist Reviewed by ED physician Portions of this section were scribed by Lauren Lynn on 05/07/18 at 1014 Re-Evaluation MDM Re-Evaluation/Progress #1 Text/Dict Note BP 120/84, HR 81 Time of Re-Eval 1022 Re-Eval Status Improved ED Course Medication(s) Ordered Medication(s) Ordered: Central Nervous System Agents Sig/Lynn Start time Last Medication Dose Route Stop Time Status Admin Ketorolac 30 MG X1ED STA 05/07 1001 DC 05/07 Tromethamine IV 05/07 1002 1053 Aspirin 324 MG X1ED STA 05/07 0938 DC 05/07 PO 05/07 0939 1000 Portions of this section were scribed by Lauren Lynn on 05/07/18 at 1014 Patient Discharge Departure Vital Signs/Condition Vital Signs First Documented: Result Date Time Pulse Ox 98 05/07 0931 B/P 133/88 05/07 0931 B/P Mean 103 05/07 0931 O2 Delivery Room air 05/07 0931 Temp 36.7 05/07 0931 Pulse 101 / 0931 Resp 16 05/07 0931 O2 Flow Rate [id number] 05/07 0941 Last Documented: Result Date Time Pulse Ox 98 05/07 1216 B/P 132/84 / 1216 B/P Mean 100 05/07 1216 O2 Delivery Room air 05/07 1216 Temp 36.8 05/07 1216 Pulse 74 05/07 1216 Resp 16 05/07 1216 O2 Flow Rate 2.058549 05/07 0941 All vital signs available at the time of this entry have been reviewed. Condition Stable Clinical Impression Clinical Impression Primary Impression: Atypical chest pain Secondary Impressions: Anxiety, Bronchitis, Costochondritis, acute, Trichomonas infection, UTI (urinary tract infection) Disposition Decision Discharge )( Discharged to Home Yes )( Time 1106 )( Date 05/07/18 Discharge/Care Plan Counseled Regarding Diagnosis, Lab results, Imaging studies, Smoking cessation Prescriptions ALBUTEROL, VISTARIL, BROMFED-DM, NAPROXEN, FLAGYL, MACROBID Prescriptions Reviewed Risks, Benefits Discharge Note I have spoken with the patient and/or caregivers. I have explained the patient's condition, diagnoses and treatment plan based on the information available to me at this time. I have answered the patient's and/or caregiver's questions and addressed any concerns. The patient and/or caregivers have as good an understanding of the patient's diagnosis, condition and treatment plan as can be expected at this point. The vital signs have been stable. The patient's condition is stable and appropriate for discharge from the emergency department. The patient will pursue further outpatient evaluation with the primary care physician or other designated or consulting physician as outlined in the discharge instructions. The patient and/or caregivers are agreeable to this plan of care and follow-up instructions have been explained in detail. The patient and/or caregivers have received these instructions in written format and have expressed an understanding of the discharge instructions. The patient and/or caregivers are aware that any significant change in condition or worsening of symptoms should prompt an immediate return to this or the closest emergency department or a call to 911. Quality Measures BP F/U for HTN Pre-existing HTN 12-Lead ECG for CP Performed documented Smoking Cessation Screened, tobacco user, Tobacco cess intervention Tobacco Screening/Cessation 18 years or older, Tobacco user, Smoking cessation offered, Counseled 3-10 minutes Smoking Cessation Counseling The patient was questioned regarding their smoking habits, and I have determined , as the patient's treating physician, that there is a medical necessity in regards to the patient's medical condition to provide smoking cessation program education. The patient was advised to stop smoking and counseled for a period of greater than 3 minutes. The patient was instructed to follow up with a primary care physician for smoking cessation and given information regarding local smoking cessation programs in the area. The patient received detailed discharge instructions as to how to stop smoking. The patient expressed an understanding of the need to follow up and the plan for smoking cessation. Supervising Physician Note Scribe Statement Lauren Lynn, 05/07/18 0909, scribing for and in the presence of Dr. Krueger. Signed By: Lauren Lynn, 05/07/18 0947 Provider Scribed Statement I personally performed the services described in this documentation and reviewed the documentation that was dictated to the scribe(s) in my presence, and it accurately records my words and actions. Patricia Krueger, 05/07/18 Portions of this section were scribed by Lauren Lynn on 05/07/18 at 0948 at 1334 RPT #:[id number] END OF [id number] 09:44:00 [facility] ([facility]) EMERGENCY PROVIDER REPORT REPORT#:[id number] REPORT STATUS: Signed DATE:05/07/18 TIME: 943 PATIENT: DUNG HDEZ UNIT #: [id number] ROOM/BED: AGE: 32 SEX: F PCP PHYS: No Primary or Family Physician SERVICE AUTHOR: Patricia Krueger MD * ALL edits or amendments must be made on the electronic/computer document * HPI-Chest Pain Under 40 General Confirmed Patient Yes Initial Greet Date/Time 05/07/18 0932 PCP No 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 No Onset Occurred Yesterday (PM) Symptom Duration Since onset, Constant Progression since Onset Unchanged, Constant Location Substernal Quality Painful Radiation Does not radiate. )( Migration/Movement None Severity: Onset Moderate Severity: Current Moderate Associated with Reports: Cough, non-productive, Lightheaded, Shortness of breath. Denies: Nausea, Vomiting. Associated Other Pt denies other symptoms Exacerbated by Nothing Relieved by Nothing Context Related History Reports: Anxiety disorder, Hypertension. Similar Sx Previous Yes Free Text HPI Notes Free Text HPI Notes 32 y/o female with a PMHx of HTN and Anxiety presents to the ED c/o non- productive cough and substernal CP that radiates to the R chest and upper chest since 2029 yesterday PM. Pt states pain has been constant since onset and is exacerbated by movement and cough. Pt reports associated sx of lightheadedness and SOB and states her sx may be attributed to Anxiety. Pt states she is non- compliant with her meds for Anxiety and HTN. Denies fever, chills, N/V or any other acute symptoms. Pt reports a Hx of substance abuse, but denies any recent drug use. Pt is a current some day smoker and reports + vape use. Reports NKDA. Portions of this section were scribed by Lauren Lynn on 05/07/18 at 1014 Risk-Chest Pain Under 40 Risk Stratification )( Coronary Artery Disease Risk factors reviewed, Hypertension, Smoking Thoracic Aortic Dissection Risk factors reviewed, Hypertension )( Pulmonary Embolism Risk factors reviewed )( AMI-Aspirin Aspirin Last 24 Hrs Not indicated HEART for MACE HEART for MACE Response Value History Low index of suspicion 0 ECG Interpretation Normal ECG 0 Age Age under 45 0 Risk Factors for CAD 1-2 CAD risk factors 1 Troponin < or = to NL troponin 0 Total 1 HEART Score for MACE 0-3 (low risk 0.9%-1.7%) Portions of this section were scribed by Lauren Lynn on 05/07/18 at 0944 Review of Systems ROS Statements All systems rev neg except as marked. Focused Review of Systems Constitutional Denies: Chills, Fever, Lethargy. Respiratory Denies: Cough, non-productive, Cough, productive, Shortness of breath. Cardiovascular Reports: Chest pain. Denies: Edema, Palpitations, Syncope. GI Denies: Abdominal pain, Diarrhea, Nausea, Vomiting. Musculoskeletal Denies: Back pain, Extremity pain. Skin Denies: Diaphoresis, Rash. Neurologic Reports: Lightheaded. Denies: Change LOC, Dizziness, Focal weakness, Headache, Numbness, Slurred speech. Psychiatric Reports: Anxiety. Denies: Depression. Additional Review of Systems Eyes Denies: Discharge bilat, Redness bilat. Ears/Nose/Throat Denies: Nasal congestion, Sore throat. Portions of this section were scribed by Lauren Lynn on 05/07/18 at 0944 Past Medical History - Adult Stated Complaint CHEST PAIN Allergies Coded Allergies: egg (Mild, VOMITING 08/22/12) Home Medications Reported Medications No Known Home Medications Discontinued Reported Medications metroNIDAZOLE (FLAGYL) Review of Nursing Notes Rev avail, and agree Past Medical History: Reports: Hypertension. Additional Medical History Anxiety Past Surgical History: Reports: Bilateral tubal ligation. Alcohol Use Denies EtOH use Drug Use Hx of substance abuse Smoking status for patients 13 years old or older: Current some day smoker Portions of this section were scribed by Lauren Lynn on 05/07/18 at 0944 Physical Exam Vital Signs Vital Signs First Documented: Result Date Time Pulse Ox 98 05/07 930 B/P 133/88 05/07 930 B/P Mean 103 05/07 930 O2 Delivery Room air 05/07 930 Temp 36.7 05/07 930 Pulse 101 05/07 930 Resp 16 05/07 09 O2 Flow Rate [id number] 05/07 940 Last Documented: Result Date Time Pulse Ox 98 05/07 1216 B/P 132/84 05/07 1216 B/P Mean 100 05/07 121 O2 Delivery Room air 05/07 1215 Temp 36.8 05/07 1215 Pulse 74 05/07 1215 Resp 16 05/07 121 O2 Flow Rate 2.131584 05/07 940 Review of Vital Signs Reviewed Focused PE General/Const General/Const Awake, Alert, No acute distress, Well developed, Well nourished , Cooperative, Not toxic appearing Eyes Eyes PERRL, EOMI, Conjunctiva NL MS Neck Neck Supple, Full range of motion, No swelling Resp/Chest Respiratory/Chest Breath sounds NL, Breath sounds = bilat, No respiratory distress, No rales, No rhonchi, No wheezing Text/Dict Notes Tenderness to costochondral region and L anterior chest wall, reproduces pt's complaint Cardiovascular Cardiovascular Heart rate NL, Regular rhythm, Heart sounds NL, No pedal edema Abdomen/GI Abdomen/GI Soft, Non-tender, No guarding, No distention MS Back Back Inspection NL, Full range of motion, Painless range of motion, Non- tender MS Lower Extrem Lower Ext/Pelvis/MS Inspection NL, Full range of motion, No swelling, Non- tender Skin Skin Color NL, No rash, Warm, Dry, Intact, No swelling Neurologic Neurologic Oriented X3, Speech NL, No motor deficits, No sensory deficits, CN II - XII intact Psychiatric Psychiatric Affect NL, Mood NL Portions of this section were scribed by Lauren Lynn on 05/07/18 at 0948 Interpretation Diagnostics Lab Results Interpretation Results Laboratory Tests 05/07/18 1005: [Embedded Image Not Available] Laboratory Tests: 05/07 1004 Chemistry Sodium (134.0 - 147.0 mmol/l) 138 Potassium (3.6 - 5.2 mmol/L) 4.2 Chloride (98.0 - 107.0 mmol/l) 102 Carbon Dioxide (21.0 - 33.0 mmol/l) 24.8 Anion Gap (0 - 20) 15.4 BUN (7.0 - 18.0 mg/dl) 12 Creatinine (0.60 - 1.30 mg/dL) 0.79 Est GFR ( Amer) (127 - 133 mL/min) 108 L Est GFR (Non-Af Amer) (105 - 110 mL/min) 89 L Glucose (70.0 - 110.0 mg/dl) 97 Calcium (8.0 - 10.5 mg/dl) 9.7 Total Bilirubin (0.0 - 1.0 mg/dl) 0.4 Direct Bilirubin (0.0 - 0.3 mg/dl) 0.1 AST (15.0 - 37.0 Units/L) 23 ALT (12.0 - 78.0 Units/L) 27 Total Alk Phosphatase (50.0 - 136.0 Units/L) 75 Total Creatine Kinase (26 - 192 Units/L) 169 CK-MB (CK-2) (0.5 - 5.0 NG/ML) 1.0 CK-MB (CK-2) Rel Index (0.0 - 2.5) 0.6 Troponin I (0.00 - 0.06 NG/ML) <0.02 B-Natriuretic Peptide (5 - 100 PG/ML) <5.0 L Total Protein (6.0 - 8.1 GM/DL) 7.8 Albumin (3.2 - 4.7 gm/dL) 4.1 Lipase (65.0 - 230.0 Units/L) 93 Serum , Qual (NEGATIVE) NEGATIVE Coagulation PTT (Beau) (25.86 - 36.07 SECONDS) 30.10 Hematology WBC (4.5 - 11.0 K/mm3) 7.9 RBC (3.80 - 5.20 M/mm3) 4.75 Hgb (12.0 - 16.0 gm/dL) 15.7 Hct (36.0 - 48.0 %) 45.4 MCV (82.0 - 99.0 UM3) 95.6 MCH (25.5 - 32.5 UUG) 33.1 H MCHC (29.0 - 35.5 gm/dL) 34.6 RDW (11.5 - 15.0 %) 12.9 Plt Count (150 - 400 K/mm3) 253 MPV (7.4 - 10.4 fl) 9.4 Toxicology Urine Opiates Screen (NEGATIVE) NEGATIVE Urine Methadone Screen (NEGATIVE) NEGATIVE Urine Barbiturates (NEGATIVE) NEGATIVE Ur Phencyclidine Scrn (NEGATIVE) NEGATIVE Ur Amphetamines Screen (NEGATIVE) NEGATIVE U Benzodiazepines Scrn (NEGATIVE) NEGATIVE Urine Cocaine Screen (NEGATIVE) NEGATIVE Urine Cannabinoids (NEGATIVE) POSITIVE H Urines Urine Color YELLOW Urine Appearance CLEAR Urine pH (5.0 - 9.0) 7.0 Ur Specific Alma (1.000 - 1.030) 1.015 Urine Protein (NEGATIVE mg/dl) NEGATIVE Urine Glucose (UA) (NORMAL mg/dl) NORMAL Urine Ketones (NEGATIVE mg/dl) NEGATIVE Urine Blood (NEGATIVE Cory/micL) NEGATIVE Urine Nitrite (NEGATIVE) NEGATIVE Urine Bilirubin (NEGATIVE mg/dL) NEGATIVE Urine Urobilinogen (NORMAL mg/dl) NORMAL Ur Leukocyte Esterase (NEGATIVE Forest/micL) 25 Forest/micL H Urine RBC (0 - 3 RBC/HPF) 0-2 Urine WBC (NONE WBC/HPF) 3-5/HPF Ur Epithelial Cells (0 - 3 EPI/HPF) 1-3 Urine Bacteria (NONE) FEW Urine Mucus TRACE Urine Trichomonas (NEGATIVE) FEW Recent Impressions: RADIOLOGY - XR CHEST 1 V 05/07 0950 Report Impression - Status: SIGNED Entered: 05/07/2018 1001 Impression: 1. No acute abnormality. Impression By: [email or web address] - Liu Washington M.D. Lab Imaging Statement Laboratory radiographic studies reviewed and considered in the medical decision-making. Point of Care Testing Urinalysis Interpretation UA reviewed Pulse Oximetry Pulse Ox % 98 On: Room air Interpretation Interpreted by me, Pulse oximetry normal Time 0931 Test serum HCG reviewed ECG #1 Interpretation ECG Documented in MUSE Yes Date 05/07/18 Time 0953 Interpreted by ED physician NL ECG Interpretation Normal rate, Normal sinus rhythm, No acute ischemic changes, Normal axis, Normal intervals Rate 92 Lab Studies Drug Screen/Level Drug Screen Interpretation Drug screen reviewed Radiography X-Ray Chest View 1 view Interpretation/Wet Read by Interpret - Radiologist Reviewed by ED physician Portions of this section were scribed by Lauren Lynn on 05/07/18 at 1014 Re-Evaluation MDM Re-Evaluation/Progress #1 Text/Dict Note BP 120/84, HR 81 Time of Re-Eval 1022 Re-Eval Status Improved ED Course Medication(s) Ordered Medication(s) Ordered: Central Nervous System Agents Sig/Lynn Start time Last Medication Dose Route Stop Time Status Admin Ketorolac 30 MG X1ED STA 05/07 1001 DC 05/07 Tromethamine IV 05/07 1002 1053 Aspirin 324 MG X1ED STA 05/07 0938 DC 05/07 PO 05/07 0939 1000 Portions of this section were scribed by Lauren Lynn on 05/07/18 at 1014 Patient Discharge Departure Vital Signs/Condition Vital Signs First Documented: Result Date Time Pulse Ox 98 05/07 0931 B/P 133/88 / 0931 B/P Mean 103 05/07 0931 O2 Delivery Room air 05/07 0931 Temp 36.7 05/07 0931 Pulse 101 05/07 0931 Resp 16 05/07 0931 O2 Flow Rate [id number] 05/07 0941 Last Documented: Result Date Time Pulse Ox 98 05/07 1216 B/P 132/84 / 1216 B/P Mean 100 05/07 1216 O2 Delivery Room air 05/07 1216 Temp 36.8 05/07 1216 Pulse 74 05/07 1216 Resp 16 05/07 1216 O2 Flow Rate 2.032327 05/07 0941 All vital signs available at the time of this entry have been reviewed. Condition Stable Clinical Impression Clinical Impression Primary Impression: Atypical chest pain Secondary Impressions: Anxiety, Bronchitis, Costochondritis, acute, Trichomonas infection, UTI (urinary tract infection) Disposition Decision Discharge )( Discharged to Home Yes )( Time 1106 )( Date 05/07/18 Discharge/Care Plan Counseled Regarding Diagnosis, Lab results, Imaging studies, Smoking cessation Prescriptions ALBUTEROL, VISTARIL, BROMFED-DM, NAPROXEN, FLAGYL, MACROBID Prescriptions Reviewed Risks, Benefits Discharge Note I have spoken with the patient and/or caregivers. I have explained the patient's condition, diagnoses and treatment plan based on the information available to me at this time. I have answered the patient's and/or caregiver's questions and addressed any concerns. The patient and/or caregivers have as good an understanding of the patient's diagnosis, condition and treatment plan as can be expected at this point. The vital signs have been stable. The patient's condition is stable and appropriate for discharge from the emergency department. The patient will pursue further outpatient evaluation with the primary care physician or other designated or consulting physician as outlined in the discharge instructions. The patient and/or caregivers are agreeable to this plan of care and follow-up instructions have been explained in detail. The patient and/or caregivers have received these instructions in written format and have expressed an understanding of the discharge instructions. The patient and/or caregivers are aware that any significant change in condition or worsening of symptoms should prompt an immediate return to this or the closest emergency department or a call to 911. Quality Measures BP F/U for HTN Pre-existing HTN 12-Lead ECG for CP Performed documented Smoking Cessation Screened, tobacco user, Tobacco cess intervention Tobacco Screening/Cessation 18 years or older, Tobacco user, Smoking cessation offered, Counseled 3-10 minutes Smoking Cessation Counseling The patient was questioned regarding their smoking habits, and I have determined , as the patient's treating physician, that there is a medical necessity in regards to the patient's medical condition to provide smoking cessation program education. The patient was advised to stop smoking and counseled for a period of greater than 3 minutes. The patient was instructed to follow up with a primary care physician for smoking cessation and given information regarding local smoking cessation programs in the area. The patient received detailed discharge instructions as to how to stop smoking. The patient expressed an understanding of the need to follow up and the plan for smoking cessation. Supervising Physician Note Scribe Statement Lauren Lynn, 05/07/18 0947, scribing for and in the presence of Dr. Krueger. Signed By: Lauren Lynn, 05/07/18 0911 Provider Scribed Statement I personally performed the services described in this documentation and reviewed the documentation that was dictated to the scribe(s) in my presence, and it accurately records my words and actions. Patricia Krueger, 05/07/18 Portions of this section were scribed by Lauren Lynn on 05/07/18 at 0948 at 1334 RPT #:[id number] END OF REPORTHCAMN
[2024-07-21 15:38] LABS: Absolute Basophils 0.1 K/uL (0-0.5); Absolute Eosinophils 0.2 K/uL (0-0.5); Absolute Monocytes 0.6 K/uL (0.1-1.3); Absolute Neutrophil 3.9 K/uL (1.8-8.0); Eosinophils % 2.3 % (0-4.4); Hematocrit 36.6 % (36.0-45.0); Hemoglobin 12.1 g/dL (12.0-15.0); Lymphocytes % 29.5 % (15.3-44.8); MCH 29.4 pg (27.0-35.0); MCHC 33.2 g/dL (32.0-36.0); MCV 88.5 fL (80-100); MPV 8.4 fL (7.6-11.3); Monocytes % 9.3 % (3.3-12.3); Neutrophils % 57.9 % (41.7-73.7); Platelets 334 thou/uL (152-406); RBC Red Blood Cell Count 4.14 M/uL (3.86-4.86); Red Cell Distribution Width 14.3 % (12.1-15.2)
[2024-07-21 16:42] LABS: ALT/SGPT 27 U/L (13-56); AST/SGOT 20 U/L (15-37); Albumin/Globulin Ratio 1.2 (1.1-1.8); Alkaline Phosphatase 98 U/L (45-117); Anion Gap 8.3 mEq/L (5.0-15.0); BUN Blood Urea Nitrogen 16 mg/dL (7-18); Bicarbonate 25 mEq/L (21-32); Bilirubin Total 0.2 mg/dL (0.2-1.0); Globulin 3.4 g/dL (2.3-3.5); Glomerular Filtration Rate 74 ml/min (=/>90); Glucose Level 103 mg/dL (74-106); Magnesium 1.9 mg/dL (1.6-2.4); NT PRO-BNP 37 pg/mL (<125); Potassium 4.3 mEq/L (3.5-5.1); Protein, Total 7.4 g/dL (6.4-8.2); Sodium Level 137 mEq/L (136-145)
[2024-07-21 16:53] LABS: Bilirubin Direct < 0.2 mg/dL (0-0.2); Troponin High Sensitivity < 3.0 pg/mL (<58.9)
[2024-07-21] MEDS ORDERED: HYDROCODONE/APAP 5/325 MG TAB ONE (18:00)
--- NOTE | 2024-07-21 18:42 | RAD REPORT ---
EXAMINATION: ONE VIEW CHEST XR CLINICAL INDICATION: Female, 38 years old.,CHEST PAIN TECHNIQUE: Frontal chest projection is submitted. Examination is limited by patient positioning and t echnique. COMPARISON: 03/15/2021 FINDINGS: The lungs are well inflated and clear. No pneumothorax or sizable effusion. The heart is normal in s ize. Mediastinal contours are unremarkable. IMPRESSION: No acute intrathoracic abnormalities.
--- NOTE | 2024-07-21 18:48 | ER ---
Nurse's Notes [facility] Name: Sherri Drake Age: 38 yrs Sex: Female : 1985 Arrival Date: 07/21/2024 Time: 14:38 Bed 16 Private MD: Diagnosis: Chest pain, unspecified Presentation: 07/21 14:50 Chief complaint: Patient states: Chest pain for a few years. Getting worse and more ld1 constant. Coronavirus screen: At this time, the client does not indicate any symptoms associated with coronavirus-19. Ebola Screen: No symptoms or risks identified at this time. Initial Sepsis Screen: Does the patient meet any 2 criteria? No. Patient's initial sepsis screen is negative. Does the patient have a suspected source of infection? No. Patient's initial sepsis screen is negative. Risk Assessment: Do you want to hurt yourself or someone else? Patient reports no desire to harm self or others. Onset of symptoms was July 21, 2024 at 14:52. 14:50 Method Of Arrival: Ambulatory ld1 14:50 Acuity: LONI 3 ld1 Triage Assessment: 14:52 General: Appears in no apparent distress. comfortable, Behavior is calm, cooperative, ld1 appropriate for age. Pain: Complains of pain in chest Pain does not radiate. Pain currently is 8 out of 10 on a pain scale. Quality of pain is described as throbbing, Pain began suddenly, Is continuous. EENT: No signs and/or symptoms were reported regarding the EENT system. Neuro: Level of Consciousness is awake, alert, obeys commands, Oriented to person, place, time, situation. Cardiovascular: Capillary refill < 3 seconds Patient's skin is warm and dry. Respiratory: Airway is patent Respiratory effort is even, unlabored. GI: Abdomen is round non-distended. : No signs and/or symptoms were reported regarding the genitourinary system. Derm: No signs and/or symptoms reported regarding the dermatologic system. Musculoskeletal: No signs and/or symptoms reported regarding the musculoskeletal system. 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 - Infectious Disease History:: Denies. - Social history:: Smoking status: Patient denies any tobacco usage or history of. Screenin:15 [facility] ED Fall Risk Assessment (Adult) History of falling in the last 3 months, kj2 including since admission No falls in past 3 months (0 pts) Confusion or Disorientation No (0 pts) Intoxicated or Sedated No (0 pts) Impaired Gait No (0 pts) Mobility Assist Device Used No (0 pt) Altered Elimination No (0 pt) Score/Fall Risk Level 0 - 2 = Low Risk Maintained a safe environment, Hourly rounding (assess needs \T\ fall precautionary measures) done. Abuse screen: Denies threats or abuse. Denies injuries from another. Nutritional screening: No deficits noted. Tuberculosis screening: No symptoms or risk factors identified. Assessment: 15:15 General: Appears in no apparent distress. Behavior is calm, cooperative. Pain: kj2 Complains of pain in chest Pain currently is 5 out of 10 on a pain scale. Neuro: Level of Consciousness is awake, alert, obeys commands, Oriented to person, place, time, situation. Cardiovascular: Patient's skin is warm and dry. Respiratory: Airway is patent Respiratory effort is unlabored. GI: No signs and/or symptoms were reported involving the gastrointestinal system. : No signs and/or symptoms were reported regarding the genitourinary system. 15:15 Pain: Pain began gradually. kj2 16:15 Reassessment: Patient appears in no apparent distress at this time. Patient and/or kj2 family updated on plan of care and expected duration. Pain level reassessed. Patient is alert, oriented x 3, equal unlabored respirations, skin warm/dry/pink. 17:25 Reassessment: Patient appears in no apparent distress at this time. Patient and/or kj2 family updated on plan of care and expected duration. Pain level reassessed. Patient is alert, oriented x 3, equal unlabored respirations, skin warm/dry/pink. 18:49 Reassessment: Patient appears in no apparent distress at this time. Patient and/or kj2 family updated on plan of care and expected duration. Pain level reassessed. Patient is alert, oriented x 3, equal unlabored respirations, skin warm/dry/pink. 19:16 Reassessment: Patient appears in no apparent distress at this time. Patient and/or kj2 family updated on plan of care and expected duration. Pain level reassessed. Patient is alert, oriented x 3, equal unlabored respirations, skin warm/dry/pink. Vital Signs: 14:50 BP 140 / 99; Pulse 89; Resp 18; Temp 98.1(TE); Pulse Ox 99% on R/A; Weight 95.25 kg; ld1 Height 5 ft. 5 in. ; Pain 7/10; 15:15 BP 137 / 95; Pulse 73; Resp 20; Pulse Ox 100% on R/A; kj2 16:15 BP 144 / 88; Pulse 73; Resp 20; Pulse Ox 100% ; kj2 17:15 BP 138 / 91; Pulse 71; Resp 18; Pulse Ox 97% ; kj2 18:09 BP 148 / 97; Pulse 73; Resp 20; Pulse Ox 98% ; kj2 19:15 BP 146 / 88; Pulse 74; Resp 18; Temp 98.2; Pulse Ox 100% on R/A; kj2 14:50 Body Mass Index 34.95 (95.25 kg, 165.1 cm) ld1 14:50 Pain Scale: Adult ld1 ED Course: 14:40 Patient arrived in ED. al6 14:41 Ramila Barros [facility]C [facility] kb 14:41 Clyde Hill MD is Attending Physician. kb 14:52 Triage completed. ld1 14:52 Arm band placed on right wrist. ld1 15:15 Patient has correct armband on for positive identification. Bed in low position. Call kj2 light in reach. Provided Education on: call light. Client placed on continuous cardiac and pulse oximetry monitoring. NIBP monitoring applied. therapeutic program worker on. Pulse ox on. 15:17 Sonam German, RN is Primary Nurse. kj2 15:30 Missed attempt(s): 20 gauge in right antecubital area. kj2 15:45 Inserted saline lock: 20 gauge in left forearm, using aseptic technique. kj2 16:46 XRAY Chest (1 view) In Process Unspecified. EDMS 18:49 No provider procedures requiring assistance completed. IV discontinued, intact, kj2 bleeding controlled, No redness/swelling at site. Pressure dressing applied. Patient maintains SpO2 saturation greater than 95% on room air. Administered Medications: 14:53 Drug: Aspirin PO Chewable Tablet 324 mg PO once; 81 mg tablets x 4 Route: PO; ld1 18:50 Follow up: Response: No adverse reaction kj2 18:09 Drug: HYDROcodone-acetaminophen PO 5 mg-325 mg 1 tabs PO once Route: PO; kj2 18:50 Follow up: Response: No adverse reaction kj2 19:14 Drug: LORazepam PO 1 mg PO once Route: PO; kj2 19:15 Follow up: Response: Medication administered at discharge. kj2 19:14 Drug: Ketorolac IVP 15 mg IVP once Route: IVP; Site: left forearm; kj2 19:15 Follow up: Response: Medication administered at discharge. kj2 Medication: 18:50 VIS not applicable for this client. kj2 Outcome: 18:47 Discharge ordered by . kb 18:50 Discharged to home ambulatory, kj2 18:50 Condition: stable 18:50 Discharge instructions given to patient, Instructed on discharge instructions, follow up and referral plans. Demonstrated understanding of instructions, follow-up care, 19:23 Patient left the ED. kj2 Signatures: Dispatcher [employer] EDRamila Montoya, JOSEMANUEL-Ha ABERNATHY-Alissa Vargas RN RN ld1 Sonam German RN RN kj2 China Nicolas6
--- NOTE | 2024-07-21 18:48 | EDPHYS ---
Physician Documentation [facility] Name: Sherri Drake Age: 38 yrs Sex: Female : 1985 Arrival Date: 07/21/2024 Time: 14:38 Bed 16 Private MD: ED Physician Clyde Hill HPI: 07/21 14:58 This 38 yrs old Female presents to ER via Ambulatory with complaints of Chest Pain. kb 14:58 Patient is a 38-year-old female who presents for chest pain that has been intermittent kb for a couple of years. States the pain is getting more constant so that is what brought her in today. States she obtained insurance 2 to 3 months ago so she started seeing her PCP who put her on blood pressure medication that she is not sure the name of, migraine medication, Prozac and Seroquel.. 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 - Infectious Disease History:: Denies. - Social history:: Smoking status: Patient denies any tobacco usage or history of. ROS: 14:57 Constitutional: As per HPI kb Exam: 14:50 Constitutional: This is a well developed, well nourished patient who is awake, alert, kb and in no acute distress. Head/Face: Normocephalic, atraumatic. ENT: Moist Mucous membranes Cardiovascular: Regular rate Respiratory: Respirations even and unlabored. No increased work of breathing. Talking in full sentences Abdomen/GI: Soft, non-tender. No distention Skin: Warm, dry with normal turgor. Normal color. MS/ Extremity: Pulses equal, no cyanosis. Neurovascular intact. Full, normal range of motion. Neuro: Awake and alert, GCS 15, oriented to person, place, time, and situation. 14:50 ECG was reviewed by the Attending Physician. Vital Signs: 14:50 BP 140 / 99; Pulse 89; Resp 18; Temp 98.1(TE); Pulse Ox 99% on R/A; Weight 95.25 kg; ld1 Height 5 ft. 5 in. ; Pain 7/10; 15:15 BP 137 / 95; Pulse 73; Resp 20; Pulse Ox 100% on R/A; kj2 16:15 BP 144 / 88; Pulse 73; Resp 20; Pulse Ox 100% ; kj2 17:15 BP 138 / 91; Pulse 71; Resp 18; Pulse Ox 97% ; kj2 18:09 BP 148 / 97; Pulse 73; Resp 20; Pulse Ox 98% ; kj2 19:15 BP 146 / 88; Pulse 74; Resp 18; Temp 98.2; Pulse Ox 100% on R/A; kj2 14:50 Body Mass Index 34.95 (95.25 kg, 165.1 cm) ld1 14:50 Pain Scale: Adult ld1 MDM: 14:41 Medical Screening Exam initiated kb 14:58 Data reviewed: vital signs, nurses notes. kb 18:46 Differential diagnosis: acute mi, arrhythmia, htn. Consideration of kb Admission/Observation Escalation of care including admission/observation considered. admission considered but HEART score 1, pain has been ongoing for years . Counseling: I had a detailed discussion with the patient and/or guardian regarding the historical points, exam findings, and any diagnostic results supporting the discharge/admit diagnosis, lab results, radiology results, the need for outpatient follow up, a family practitioner, to return to the emergency department if symptoms worsen or persist or if there are any questions or concerns that arise at home. 07/21 14:49 Order name: Basic Metabolic Panel; Complete Time: 16:54 kb 07/21 14:49 Order name: CBC with Diff; Complete Time: 15:44 kb 07/21 14:49 Order name: LFT's; Complete Time: 16:54 kb 07/21 14:49 Order name: Magnesium; Complete Time: 16:54 kb 07/21 14:49 Order name: NT PRO-BNP; Complete Time: 16:54 kb 07/21 14:49 Order name: Troponin HS; Complete Time: 16:54 kb 07/21 14:49 Order name: XRAY Chest (1 view); Complete Time: 18:46 kb 07/21 14:49 Order name: Cardiac monitoring; Complete Time: 15:41 kb 07/21 14:49 Order name: EKG - Nurse/Tech; Complete Time: 14:53 kb 07/21 14:49 Order name: IV Saline Lock; Complete Time: 18:09 kb 07/21 14:49 Order name: Labs collected and sent; Complete Time: 15:41 kb 07/21 14:49 Order name: O2 Per Protocol; Complete Time: 15:41 kb 07/21 14:49 Order name: O2 Sat Monitoring; Complete Time: 15:41 kb 07/21 15:43 Order name: Labs - recollect needed: recollect green top; Complete Time: 18:09 bd EC:50 Rate is 78 beats/min. Rhythm is regular. QRS [place] is Normal. ME interval is normal at kb 144 msec. QRS interval is normal at 82 msec. QT interval is normal at 396 msec. Administered Medications: 14:53 Drug: Aspirin PO Chewable Tablet 324 mg PO once; 81 mg tablets x 4 Route: PO; ld1 18:50 Follow up: Response: No adverse reaction kj2 18:09 Drug: HYDROcodone-acetaminophen PO 5 mg-325 mg 1 tabs PO once Route: PO; kj2 18:50 Follow up: Response: No adverse reaction kj2 19:14 Drug: LORazepam PO 1 mg PO once Route: PO; kj2 19:15 Follow up: Response: Medication administered at discharge. kj2 19:14 Drug: Ketorolac IVP 15 mg IVP once Route: IVP; Site: left forearm; kj2 19:15 Follow up: Response: Medication administered at discharge. kj2 Disposition: 07/22 16:10 Co-signature as Attending Physician, Clyde Hill MD I reviewed the patient's care rn provided by the Advanced Practice Provider and agree with the diagnosis and treatment plan. Disposition Summary: 07/21/24 18:47 Discharge Ordered Notes: Location: Home kb Condition: Stable kb Diagnosis - Chest pain, unspecified kb Followup: kb - With: Emergency Department - When: As needed - Reason: Worsening of condition Followup: kb - With: Private Physician - When: 2 - 3 days - Reason: Recheck today's complaints, Continuance of care, Re-evaluation by your physician Discharge Instructions: - Discharge Summary Sheet kb - Nonspecific Chest Pain, Adult, [id number] kb Forms: - Medication Reconciliation Form kb - Antibiotic Education kb - Prescription Opioid Use kb - Patient Portal Instructions kb - Leadership Thank You Letter kb Signatures: Dispatcher [employer] EDRamila Montoya FNP-C FNP-Kathleen Luciano Roman, MD MD rn Sims, Lauren, RN RN ld1 Sonam German RN RN kj2 Corrections: (The following items were deleted from the chart) 07/21 14:49 14:49 BASIC METABOLIC PANEL+C.LAB.BRZ ordered. EDMS EDMS 14:49 14:49 CBC+H.LAB.BRZ ordered. EDMS EDMS 14:49 14:49 HEPATIC FUNCTION+C.LAB.BRZ ordered. EDMS EDMS 14:49 14:49 MAGNESIUM+C.LAB.BRZ ordered. EDMS EDMS 14:49 14:49 PROBNP+C.LAB.BRZ ordered. EDMS EDMS 14:49 14:49 Troponin High Sensitivity+C.LAB.BRZ ordered. EDMS EDMS 14:49 14:49 Chest Single View+RAD.RAD.BRZ ordered. EDMS EDMS
[2024-07-21] MEDS ORDERED: KETOROLAC 30 MG/ML INJ ONE (19:03)
[2024-07-21] MEDS ORDERED: LORAZEPAM 1 MG TABLET ONE (19:04)
--- NOTE | 2024-07-22 11:46 | EKG ---
Test Date: 2024-07-21 Test Time: 14:48:03 Travelers' Aid Worker: Min GONZALEZ MEASUREMENT RESULTS: Intervals: Rate: 78 [place]: 144 QRSD: 82 QT: 348 QTc: 396 [place]: P: 62 NJ: 144 QRS: 78 T: 32 INTERPRETIVE STATEMENTS: Normal sinus rhythm with sinus arrhythmia Normal ECG Compared to ECG 03/15/2021 17:32:37 No significant changes Electronically Signed On 07-22-24 11:45:44 CDT by Ernie Farias
[2024-07-22 20:53] VITALS: BP 146/88; TEMP 98.2; O2SAT 100
== END 2024-07-21 19:23 | disposition home or self-care (01) ==
LOC: ER 14:38
DX: R07.9 Chest pain, unspecified (principal); F41.9 Anxiety disorder, unspecified; Z86.73 Personal history of transient ischemic attack (TIA), and cerebral infarction without residual deficits
CPT/HCPCS: 36415; 71045; 80048; 80076; 83735; 83880; 84484; 85025; 93005; 96374; 99285